=== PATIENT | female | born 1970 | race Caucasian/White ===

== ENCOUNTER 2016-05-12 18:55 | Inpatient (IN) | payer OTHER, MEDICAID ==
[2016-05-12] MEDS ORDERED: 0.9 % SODIUM CHLORIDE 1,000 ML IV SCH ×2 (19:30→20:00)
[2016-05-12 19:55] LABS: eGFR (African) 42; eGFR (Non-African) 35
--- NOTE | 2016-05-12 20:07 | ED Physician Documentation ---
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) Duration: sudden onset Last known Well Date: 05/12/16 Last Known Well Time: 18:30 Last known Well Code/Unknown Code: Unknown Character of Altered Mental Status: decreased responsiveness Context: infection Cognition is Usually: alert, oriented x3 Gait is Usually: walks w/o assistance Associated Symptoms: recent illness (urinary tract infection) Further Comments: no - ROS EYES/ENT: none CVS/RESP: none GI/: problems urinating (uti) MS/SKIN/LYMPH: none NEURO/PSYCH: none - PAST HX Past History: other (MR, GERD, anemia, hypothyroidism, dysphagia, sleep apnea, anxiety, hiatal hernia, catarracts, mood disorder) Other History: other (vitamin D deficiency) Surgeries/Procedures: other (heart surgery) Immunizations: referred to PCP Allergies/Adverse Reactions: Allergies Allergy/AdvReac Type Severity Reaction Status Date / Time ampicillin [Ampicillin] Allergy Unknown Verified 11/08/15 10:38 ampicillin trihydrate Allergy Unknown Verified 11/08/15 10:38 [From Principen] tetrahydrozoline HCl Allergy Unknown Verified 11/08/15 10:37 [From Visine] Penicillins AdvReac Rash Verified 11/08/15 10:37 Home Medications: Ambulatory Orders Medication Instructions Recorded Alprazolam [Xanax] 1 mg PO Q4 PRN u2 02/03/13 Paliperidone Palmitate [Invega 156 mg IM monthly 02/03/13 Sustenna] Alprazolam [Xanax] 1 mg PO QID 03/19/13 Cholecalciferol [Vitamin D-3] 5,000 unit PO DAILY 03/19/13 Docusate Sodium [Colace] 25 ml PO BID 03/19/13 Esomeprazole Magnesium [Nexium] 40 mg PO 717 03/19/13 Fluticasone Propionate [Flonase] 2 sprays SAM DAILY 03/19/13 Ipratropium/Albuterol Sulfate 3 ml INH Q4 PRN 03/19/13 [Duoneb 0.5 mg-3 mg/3 ml Soln] Levothyroxine Sodium [Synthroid] 100 mcg PO DAILY 03/19/13 Cetirizine HCl [Zyrtec] 10 mg PO D 02/15/14 Sennosides/Docusate Sodium [Senna 1 each PO DAILY 02/15/14 Plus Tablet] - SOCIAL HX Smoking History: non-smoker Alcohol Use: none Drug Use: none - FAMILY HX Family History: no significant history - VITAL SIGNS Vital Signs: Vital Signs Temp Pulse Resp BP Pulse Ox 97.4 F L 73 17 80/48 97 05/12/16 18:58 05/12/16 18:58 05/12/16 18:58 05/12/16 18:58 05/12/16 18:58 - REVIEWED ASSESSMENTS Nursing Assessment Reviewed: Yes Vitals Reviewed: Yes Progress - Results/Orders Results/Orders: cbc, cmp, ua, blood cultures, ekg, cxr ordered - Progress Progress: pt. given 2 liters NS in er Critical Care Note - Critical Care Note Total Time (mins): 0 ED Results Lab/Radiology - Lab Results Lab Results: Lab Results 05/12/16 05/12/16 19:27 19:27 WBC 19.70 K/ul H K/ul (4.00-12.00) RBC 3.81 M/ul L M/ul (3.90-5.20) Hgb 12.0 g/dL g/dL (12.0-16.0) Hct 36.5 % % (34.5-46.5) MCV 95.7 fl fl (80.0-100.0) MCH 31.5 pg pg (28.0-34.0) MCHC 33.0 g/dL g/dL (30.0-36.0) RDW 17.6 % H % (11.3-14.3) Plt Count 247 K/mm3 K/mm3 (130-400) Sodium 124 mmol/L L mmol/L (136-145) Potassium 4.1 mmol/L mmol/L (3.5-5.0) Chloride 91 mmol/L L mmol/L (98-110) Carbon Dioxide 32 mmol/L mmol/L (20-32) BUN 27 mg/dL H mg/dL (10-26) Creatinine 1.7 mg/dL H mg/dL (0.4-1.5) Est GFR ( Amer) 42 L (60 - ) Est GFR (Non-Af Amer) 35 L (60 - ) Glucose 94 mg/dL mg/dL (70-99) Calcium 9.6 mg/dL mg/dL (8.5-10.5) Total Bilirubin 0.7 mg/dL mg/dL (0.2-1.2) AST 32 U/L U/L (0-41) ALT 17 U/L U/L (0-45) Alkaline Phosphatase 125 U/L H U/L (46-116) Total Protein 7.7 g/dL g/dL (6.0-8.5) Albumin 3.6 g/dL g/dL (3.0-5.5) - Radiology Radiology Impressions: cxr cardiomegaly - Orders Orders: ED Orders Category Date Time Status Place Saline Lock/IV Now Care 05/12/16 19:29 Active CHEST 1 VIEW [RAD] Routine Exams 05/12/16 Taken BLOOD CULTURE Routine Lab 05/12/16 19:27 Received CBC/PLATELET/DIFF Routine Lab 05/12/16 19:27 Completed CMP Routine Lab 05/12/16 19:27 Completed URINALYSIS Routine Lab 05/12/16 19:27 Ordered 0.9 % Sodium Chloride [Normal Saline] 1,000 ml Med 05/12/16 19:30 Ordered IV .Q1H 0.9 % Sodium Chloride [Normal Saline] 1,000 ml Med 05/12/16 20:00 Ordered IV .Q1H EKG WITH COMPARISON Routine Ther 05/12/16 Ordered Transfer Routine Transfer 05/12/16 Ordered Altered Mental Status Physical - Physical Exam General Appearance: lethargic Neuro/Psych: other (no evidence of cva, moving extremities) no evidence of acute CVA, slow to respond nml as tested Peripheral Exam: reflexes nml HEENT: ENOC, EOM's intact, no apparent trauma, ENT inspection nml, oropharynx nml Neck: normal inspection, thyroid normal, supple Respiratory: no resp distress, chest non-tender, breath sounds normal CVS: reg rate & rhythm, heart sounds normal, equal pulses, no murmur, no gallop , PMI nml, no JVD Abdomen: non-tender, no organomegaly, nml bowel sounds, no distention Skin: warm/dry, normal color Extremities: non-tender, normal range of motion, no evidence of injury, no edema Discharge Clincal Impression: Sepsis secondary to UTI Home Medications: Ambulatory Orders Alprazolam [Xanax] 1 mg PO Q4 PRN u2 02/03/13 Paliperidone Palmitate [Invega Sustenna] 156 mg IM monthly 02/03/13 Alprazolam [Xanax] 1 mg PO QID 03/19/13 Cholecalciferol [Vitamin D-3] 5,000 unit PO DAILY 03/19/13 Docusate Sodium [Colace] 25 ml PO BID 03/19/13 Esomeprazole Magnesium [Nexium] 40 mg PO 717 03/19/13 Fluticasone Propionate [Flonase] 2 sprays SAM DAILY 03/19/13 Ipratropium/Albuterol Sulfate [Duoneb 0.5 mg-3 mg/3 ml Soln] 3 ml INH Q4 PRN 07/27 Levothyroxine Sodium [Synthroid] 100 mcg PO DAILY 03/19/13 Cetirizine HCl [Zyrtec] 10 mg PO D 02/15/14 Sennosides/Docusate Sodium [Senna Plus Tablet] 1 each PO DAILY 02/15/14 Comments: Case discussed with Dr. Clark who accepts admission. Condition: Stable Disposition: ADMITTED INPATIENT Decision to Admit: [id number] Decision Time: 22:00
[2016-05-12 20:09] LABS: MEAN CORPUSCULAR HEMOGLOBIN 31.5 pg (28.0-34.0)
[2016-05-12] MEDS: 0.9 % SODIUM CHLORIDE 1,000 ML IV SCH (21:05)
--- NOTE | 2016-05-12 23:14 | Diagnostic Imaging Report ---
[facility] [address] [facility] [address] [place], [place]. [address] ~ ~ ~ ~ Report Submission Date: May 12, 2016 8:01:25 PM VITAMIN MANAGER Patient ~ Study Name: MANJULA DE LOS SANTOS ~ Date: May 12, 2016 7:49:09 PM VITAMIN MANAGER ~ Modality Type: CR Gender: F ~ Description: CHEST : 72 ~ Institution: [facility] Physician: MANUEL CHONG ~ ~ ~ ~ Portable view chest Clinical history: Difficulty breathing Findings: There is pulmonary venous congestion and the heart size is mildly enlarged. No pleural effusion, pneumothorax or alveolar consolidation. Impression: Mild cardiomegaly with pulmonary venous congestion. ~ Electronically signed on May 12, 2016 8:01:25 PM VITAMIN MANAGER by: Curt MERCADO
[2016-05-13 03:06] VITALS: BMI 38.9
[2016-05-13] MEDS ORDERED: ACETAMINOPHEN 325 MG TABLET PO PRN (05:18)
[2016-05-13] MEDS ORDERED: ACETAMINOPHEN 325 MG TABLET ONE (05:33)
[2016-05-13 05:59] LABS: OCCULT BLOOD,URINE 2+ (NEGATIVE); UROBILINOGEN URINE 0.2 Eu (0.2-1.0)
[2016-05-13 06:21] LABS: ANISOCYTOSIS 1+ (NEGATIVE); MONOCYTES % 4 % (0-11); SEGMENTED NEUTROPHILS % 79 % (39-79)
[2016-05-13] MEDS ORDERED: IPRATROPIUM/ALBUTEROL SULFATE 3 ML AMPUL.NEB NEB PRN (07:32)
--- NOTE | 2016-05-13 07:41 | History and Physical Report ---
History of Present Illnes - History of Present Illness Reason for Visit: Urinary tract infection/sepsis History of Present Illness: Victorina is admitted today for urinary tract infection/sepsis. She has been less responsive over the past two days at the [facility] ( [facility]) and was seen by Dr. Child yesterday, and given 1 g of IV Rocephin, however despite this, she has not improved. She was brought to the ER last night for evaluation and a diagnosis of urinary tract infection with sepsis was made. Levofloxacin was ordered last evening, however for reasons that are unclear to me, no antibiotics have been administered to her in the hospital until this was noted this morning. Nursing is currently hanging 500 mg of IV levofloxacin at this time. Her white count is markedly elevated. She is receiving IV fluid resuscitation. CXR does not show any infiltrates but does show some cardiomegaly. - Past Medical History Cardiac: Other (History of VSD, repaired as an ). denies: AFIB SHINGLER: Other (Down's Syndrome, Mental retardation) Gastrointestinal: Other (Esophagitis, chronic aspiration) Heme/Onc: Anemia NOS Psych: Anxiety Endocrine: Hypothyroidism - Past Surgical History Past Surgical History: Other (Congenital heart repair at , dental surgery) - Past Social History Smoke: No Alcohol: None Drugs: None Lives: Other (prison) Domestic Violence: Negative - Health Maintenance Health Maintenance: Cholesterol Influenza Vaccine: Current for this Influenza Season Pneumonia Vaccine: Yes Resuscitation Status: Resusciation Status Resuscitation Status Full Code Review of Systems - Review of Systems Constitutional: Fever, Sweats, Weakness Eyes: negative: pain ENT: negative: Ear Pain Respiratory: negative: Cough Cardiovascular: negative: Chest Pain Gastrointestinal: negative: Nausea Genitourinary: negative: Dysuria Musculoskeletal: negative: Neck Pain Skin: negative: Rash Neurological: Weakness, Other (decreased LOC) - Medications/Allergies Allergies/Adverse Reactions: Allergies Allergy/AdvReac Type Severity Reaction Status Date / Time ampicillin [Ampicillin] Allergy Unknown Verified 11/08/15 10:38 ampicillin trihydrate Allergy Unknown Verified 11/08/15 10:38 [From Principen] tetrahydrozoline HCl Allergy Unknown Verified 11/08/15 10:37 [From Visine] Penicillins AdvReac Rash Verified 11/08/15 10:37 Current Inpatient Medications: Current Inpatient Medications Acetaminophen (Tylenol) 650 mg PO Q4H PRN PRN Reason: Fever >101 Albuterol/Ipratropium (Duoneb) 3 ml NEB Q4 PRN PRN Reason: Wheezing Alprazolam (Xanax) 0.5 mg PO QID [facility] Cholecalciferol (Vitamin D-3) 5,000 unit PO DAILY [facility] Docusate Sodium (Colace) 100 mg PO BID [facility] Fluticasone Propionate (Flonase Nasal [place]) 1 spray NS DAILY [facility] Sodium Chloride (Normal Saline) 1,000 mls @ 83 mls/hr IV Q12H [facility] Last Admin: 05/12/16 21:05 Dose: 83 mls/hr Sodium Chloride (Normal Saline) 1,000 mls @ 83 mls/hr IV Q10H [facility] Levofloxacin/Dextrose 500 mg/ (PREMIX BAG) 100 mls @ 100 mls/hr IV DAILY [facility] Levothyroxine Sodium (Synthroid) 100 mcg PO 0700 [facility] Loratadine/Pseudoephedrine Sulfate (Claritin-D 12 Hour Tablet) 1 each PO Q12 [facility] Pantoprazole Sodium (Protonix) 40 mg PO 0700 [facility] Senna/Docusate Sodium (Senna Plus Tablet) 1 each PO DAILY [facility] Simethicone (Gas-X) 80 mg PO QID [facility] Exam - Exam Vital Signs: Vital Signs (72 hours) 05/12/16 05/13/16 05/13/16 23:45 02:44 05:32 Temperature 98.3 F 98.2 F 102.2 F H Pulse Rate [ 97 H 97 H 87 Pulse ox] Respiratory 20 20 20 Rate Blood Pressure 96/54 97/53 134/90 [Left Arm] Blood Pressure 96/54 [Right Arm] O2 Sat by Pulse 96 95 92 Oximetry 05/13/16 07:15 Temperature Pulse Rate [ 89 Pulse ox] Respiratory 20 Rate Blood Pressure [Left Arm] Blood Pressure 94/50 [Right Arm] O2 Sat by Pulse 97 Oximetry General: Other (Obese non responsive mentally handicapped female) HEENT: Atraumatic, PERRLA, EOMI, Edentulous, Other (mucous membranes are dry) Neck: No: Stridor Lungs: Normal air movement. No: Wheezes, Rales Cardiovascular: Regular rate, Murmur (III/) Murmur: Systolic Murmur Murmur Location: [facility] Murmur Grade: III Abdomen: Normal bowel sounds, Soft, Other (Feeding tube in place) Genitourinary: No: Right Inguinal Hernia Male Genitourinary: No: Scrotal Edema Female Genitourinary: No: Prolapse Integumentary: Warm, Dry Extremities: No edema, Other (decreased pulses) Neurological: Other (Not responsive) Psych/Mental Status: Other (Non responsive) Assessment/Plan - Assessment/Plan (1) Sepsis secondary to UTI Status: Acute Current Visit: Yes Assessment: Urine and blood cultures are obtained Started levofloxacin IV IV fluids are running (2) Down's syndrome Status: Acute Current Visit: Yes (3) Hypotension Status: Acute Current Visit: Yes Assessment: Improved with fluid resuscitation (4) Renal insufficiency Status: Acute Current Visit: Yes Assessment: I expect that this will improve with fluids (5) Hyponatremia Status: Acute Current Visit: Yes Assessment: Mild (6) Chronic pulmonary aspiration Status: Acute Current Visit: Yes Assessment: Continue feedings with Jevity and water flushes. Currently on 1 can three times daily with 60cc water flushes every two hours. VTE Assessment - RISK FACTOR SCORE VTE RISK FACTOR SCORES: AGE 40-60 YEARS - RISK VTE LOW RISK: SCORE OF 1 OR LESS (RISK PROXIMAL DVT 0.4%) NO PROPHYLAXIS NEEDED (No DVT prophylaxis indicated based on scoring)
[2016-05-13] MEDS ORDERED: LEVOFLOXACIN 500MG/D5W 100ML 100 ML IV ONE ×2 (07:44→08:17)
[2016-05-13] MEDS: LEVOFLOXACIN 500MG/D5W 100ML 500 MG in PREMIX BAG 1 BAG IV SCH (07:45)
[2016-05-13] MEDS ORDERED: DOCUSATE SODIUM 100 MG CAPSULE ONE (08:17)
[2016-05-13] MEDS ORDERED: LEVOTHYROXINE SODIUM 100 MCG TABLET PO ONE (08:19)
[2016-05-13] MEDS ORDERED: DOCUSATE SODIUM 100 MG CAPSULE PO SCH (09:00)
[2016-05-13] MEDS: LORATADINE/PSEUDOEPHEDRINE 1 EACH TAB.ER.12H PO SCH ×3 (10:21→21:55)
[2016-05-13] MEDS: SIMETHICONE 80 MG TAB.CHEW PO SCH ×4 (10:25→21:54)
[2016-05-13] MEDS: 0.9 % SODIUM CHLORIDE 1,000 ML IV SCH ×4 (10:27→23:40)
[2016-05-13] MEDS: CHOLECALCIFEROL 1,000 UNIT TABLET PO SCH (10:28)
[2016-05-13] MEDS: PANTOPRAZOLE SODIUM 40 MG TABLET PO SCH (10:28)
[2016-05-13] MEDS: LEVOTHYROXINE SODIUM 100 MCG TABLET PO SCH (10:28)
[2016-05-13] MEDS: ALPRAZOLAM 0.5 MG TABLET PO SCH ×4 (10:29→21:54)
[2016-05-13] MEDS: SENNOSIDES/DOCUSATE SODIUM 1 EACH TABLET PO SCH (10:30)
[2016-05-13] MEDS: FLUTICASONE PROPIONATE 120 SPRAY/16 GR BOTTLE NS SCH (10:31)
[2016-05-13] MEDS: GUAIFENESIN PEG SCH (18:41)
[2016-05-13] MEDS: OXYBUTYNIN CHLORIDE 5 MG TABLET PO SCH (21:54)
[2016-05-13] MEDS: MIRTAZAPINE 15 MG TABLET PO SCH (21:54)
[2016-05-13] MEDS: BENZTROPINE MESYLATE 0.5 MG TAB PO SCH (21:57)
[2016-05-13] MEDS ORDERED: TYLENOL 160 MG/5 ML PEG PRN (23:16)
[2016-05-14] MEDS ORDERED: LEVOTHYROXINE SODIUM 100 MCG TABLET PO ONE (05:09)
[2016-05-14] MEDS: PANTOPRAZOLE SODIUM 40 MG TABLET PO SCH (06:27)
[2016-05-14] MEDS: LEVOTHYROXINE SODIUM 100 MCG TABLET PO SCH (06:28)
[2016-05-14] MEDS ORDERED: PATIENT OWN MED 1 EACH EACH PEG SCH ×2 (09:00)
[2016-05-14] MEDS: LEVOFLOXACIN 500MG/D5W 100ML 500 MG in PREMIX BAG 1 BAG IV SCH (10:15)
[2016-05-14] MEDS: OXYBUTYNIN CHLORIDE 5 MG TABLET PO SCH ×2 (10:15→22:09)
[2016-05-14] MEDS: GUAIFENESIN PEG SCH ×3 (10:15→18:11)
[2016-05-14] MEDS: SIMETHICONE 80 MG TAB.CHEW PO SCH ×4 (10:15→22:09)
[2016-05-14] MEDS: DOCUSATE PEG SCH (10:15)
[2016-05-14] MEDS: ALPRAZOLAM 0.5 MG TABLET PO SCH ×4 (10:15→22:10)
[2016-05-14] MEDS: BENZTROPINE MESYLATE 0.5 MG TAB PO SCH ×2 (10:15→22:09)
[2016-05-14] MEDS: PROBIOTIC PEG SCH (10:15)
[2016-05-14] MEDS: LORATADINE/PSEUDOEPHEDRINE 1 EACH TAB.ER.12H PO SCH ×2 (10:15→22:10)
[2016-05-14] MEDS: NEUDEXTA PEG SCH (10:15)
[2016-05-14] MEDS: CHOLECALCIFEROL 1,000 UNIT TABLET PO SCH (10:20)
[2016-05-14] MEDS: SENNOSIDES/DOCUSATE SODIUM 1 EACH TABLET PO SCH (10:20)
[2016-05-14] MEDS ORDERED: LEVOFLOXACIN 500MG/D5W 100ML 100 ML IV ONE (10:24)
[2016-05-14] MEDS: FLUTICASONE PROPIONATE 120 SPRAY/16 GR BOTTLE NS SCH (11:39)
[2016-05-14] MEDS: 0.9 % SODIUM CHLORIDE 1,000 ML IV SCH ×4 (11:41→15:45)
--- NOTE | 2016-05-14 11:45 | Inpatient Progress Note ---
Subjective - Required Recertification Statement I anticipate X number of days because-include discharge plan: 2 - Review of Systems Events since last encounter: Jesenia is still improving, but she had a fever last night. No apparent adverse side effects of her antibiotics and her feeding tube is working well. General: Denies: Chills HEENT: Denies: Head Aches Pulmonary: Denies: Dyspnea Cardiovascular: Denies: Chest Pain Gastrointestinal: Denies: Nausea, Vomiting Genitourinary: Denies: Dysuria Musculoskeletal: Denies: Neck Pain Neurological: Denies: Weakness Objective - Exam Vitals and I&O: Vital Signs Temp 98.0 F 05/14/16 06:00 Pulse 131 H 05/14/16 06:00 Resp 24 05/14/16 06:00 BP 106/65 05/14/16 06:00 Pulse Ox 94 05/14/16 06:00 Intake & Output 05/13/16 05/13/16 05/14/16 11:59 23:59 11:59 Intake Total 1999 996 Output Total 1250 225 500 Balance -1250 1775 496 Weight 62.142 kg Intake: IV 996 Right Antecubital 996 Other 1999 Output: Urine 1250 225 500 Uretheral ([place]) 650 Other: Voiding Method Indwelling Catheter General: Cooperative HEENT: Atraumatic, PERRLA, Edentulous Neck: Supple, No JVD Lungs: Clear to auscultation (scar on right posterior chest from thoracotomy) Cardiovascular: Regular rate Abdomen: Normal bowel sounds, Soft, Other (feeding tube appears to be working well) Extremities: No clubbing, No cyanosis, No edema Skin: Normal Neurological: Generalized Weakness Psych/Mental Status: Other (At baseline) - Results Results: Laboratory Results WBC 19.70 K/ul (4.00-12.00) H 05/12/16 19: RBC 3.81 M/ul (3.90-5.20) L 05/12/16 19:27 Hgb 12.0 g/dL (12.0-16.0) 05/12/16 19: Hct 36.5 % (34.5-46.5) 05/12/16 19: MCV 95.7 fl (80.0-100.0) 05/12/16 19: MCH 31.5 pg (28.0-34.0) 05/12/16 19:27 MCHC 33.0 g/dL (30.0-36.0) 05/12/16 19:27 RDW 17.6 % (11.3-14.3) H 05/12/16 19:27 Plt Count 247 K/mm3 (130-400) 05/12/16 19:27 Seg Neutrophils % 79 % (39-79) 05/12/16 19: Band Neutrophils % 12 % (0-12) 05/12/16 19: Lymphocytes % 5 % (16-50) L 05/12/16 19: Monocytes % 4 % (0-11) 05/12/16 19:27 Plt Morphology Comment Normal (NORMAL) 05/12/16 19:27 Anisocytosis 1+ (NEGATIVE) H 05/12/16 19:27 RBC Morph Comment Abnormal (NORMAL) H 05/12/16 19:27 Sodium 124 mmol/L (136-145) L 05/12/16 19:27 Potassium 4.1 mmol/L (3.5-5.0) 05/12/16 19: Chloride 91 mmol/L (98-110) L 05/12/16 19:27 Carbon Dioxide 32 mmol/L (20-32) 05/12/16 19:27 BUN 27 mg/dL (10-26) H 05/12/16 19:27 Creatinine 1.7 mg/dL (0.4-1.5) H 05/12/16 19:27 Est GFR ( Amer) 42 (60-) L 05/12/16 19:27 Est GFR (Non-Af Amer) 35 (60-) L 05/12/16 19:27 Glucose 94 mg/dL (70-99) 05/12/16 19: Calcium 9.6 mg/dL (8.5-10.5) 05/12/16 19: Total Bilirubin 0.7 mg/dL (0.2-1.2) 05/12/16 19:27 AST 32 U/L (0-41) 05/12/16 19:27 ALT 17 U/L (0-45) 05/12/16 19:27 Alkaline Phosphatase 125 U/L (46-116) H 05/12/16 19:27 Total Protein 7.7 g/dL (6.0-8.5) 05/12/16 19:27 Albumin 3.6 g/dL (3.0-5.5) 05/12/16 19:27 Urine pH 6.0 (5.0 - 8.0) 05/12/16 19:33 Ur Specific [place] 1.010 (1.010-1.030) 05/12/16 19:33 Urine Protein Negative mg/dL (NEGATIVE) 05/12/16 19:33 Urine Ketones Negative mg/dL (NEGATIVE) 05/12/16 19:33 Urine Occult Blood 2+ (NEGATIVE) H 05/12/16 19:33 Urine Nitrite Positive (NEGATIVE) H 05/12/16 19:33 Urine Bilirubin Negative (NEGATIVE) 05/12/16 19:33 Urine Urobilinogen 0.2 Eu (0.2-1.0) 05/12/16 19:33 Ur Leukocyte Esterase 3+ (NEGATIVE) H 05/12/16 19:33 Urine Glucose Negative mg/dL (NEGATIVE) 05/12/16 19:33 Assessment/Plan - Assessment/Plan (1) Sepsis secondary to UTI Status: Acute Current Visit: Yes Assessment: Improved Initial culture shows >100,000 CFU of gram negative rods (suspect E. Coli) Plan: Continue levofloxacin IV Await cultures (2) Down's syndrome Status: Acute Current Visit: Yes (3) Hypotension Status: Acute Current Visit: Yes Qualifiers: Hypotension type: idiopathic hypotension Qualified Code(s): I95.0 - Idiopathic hypotension Assessment: Improved (4) Renal insufficiency Status: Acute Current Visit: Yes Assessment: Due to azotemia/dehydration (5) Hyponatremia Status: Acute Current Visit: Yes (6) Chronic pulmonary aspiration Status: Acute Current Visit: Yes Assessment: Continue feeding tube
[2016-05-14] MEDS: MIRTAZAPINE 15 MG TABLET PO SCH (22:09)
[2016-05-15] MEDS: 0.9 % SODIUM CHLORIDE 1,000 ML IV SCH ×2 (00:49→18:17)
[2016-05-15] MEDS ORDERED: LEVOTHYROXINE SODIUM 100 MCG TABLET PO ONE (04:43)
[2016-05-15] MEDS: PANTOPRAZOLE SODIUM 40 MG TABLET PO SCH (06:27)
[2016-05-15] MEDS: LEVOTHYROXINE SODIUM 100 MCG TABLET PO SCH (06:27)
[2016-05-15 07:30] LABS: MEAN CORPUSCULAR HEMOGLOBIN 31.7 pg (28.0-34.0)
[2016-05-15 07:40] LABS: eGFR (African) > 60; eGFR (Non-African) > 60
--- NOTE | 2016-05-15 08:59 | Inpatient Progress Note ---
Subjective - Required Recertification Statement I anticipate X number of days because-include discharge plan: 1 - Review of Systems Events since last encounter: Jesenia has continued to improve. She is now afebrile. Her white count has normalized and her labs look better with less azotemia and improved and her sodium is now 136, up from 124. She is having some coughing and is usually on nebulizer treatment at home so I will restart that today. General: Denies: Chills HEENT: Denies: Head Aches Pulmonary: Dyspnea, Cough Cardiovascular: Denies: Chest Pain Gastrointestinal: Diarrhea. Denies: Nausea Genitourinary: Denies: Dysuria Musculoskeletal: Denies: Neck Pain Neurological: Weakness. Denies: Confusion Objective - Exam Vitals and I&O: Vital Signs Temp 98.1 F 05/15/16 06:00 Pulse 104 H 05/15/16 06:00 Resp 22 05/15/16 06:00 BP 96/57 05/15/16 06:00 Pulse Ox 92 05/15/16 06:00 Intake & Output 05/14/16 05/14/16 05/15/16 11:59 23:59 11:59 Intake Total 2988 1796 480 Output Total 1150 2000 1800 Balance 1838 -204 -1320 Weight 62.142 kg 57.153 kg Intake: IV 2988 1316 480 Right Antecubital 2988 1316 480 Tube Feeding 480 Output: Urine 1150 1999 1800 Uretheral ([place]) 650 Other: Voiding Method Indwelling Catheter Indwelling Catheter General: Obese HEENT: Atraumatic, PERRLA, Edentulous Neck: Supple, No JVD Lungs: Clear to auscultation, Wheezes (few) Cardiovascular: Regular rate, Normal S1, Normal S2 Abdomen: Normal bowel sounds, Soft, Other (feeding tube is leaking a little bit) Extremities: No clubbing, No cyanosis, No edema Skin: Normal Neurological: No: Normal gait, Normal speech Psych/Mental Status: Other (at baseline) - Results Results: Laboratory Results WBC 5.90 K/ul (4.00-12.00) 05/15/16 07:00 RBC 3.38 M/ul (3.90-5.20) L 05/15/16 07:00 Hgb 10.7 g/dL (12.0-16.0) L 05/15/16 07:00 Hct 33.2 % (34.5-46.5) L 05/15/16 07:00 MCV 98.3 fl (80.0-100.0) 05/15/16 07:00 MCH 31.7 pg (28.0-34.0) 05/15/16 07:00 MCHC 32.3 g/dL (30.0-36.0) 05/15/16 07:00 RDW 17.2 % (11.3-14.3) H 05/15/16 07:00 Plt Count 228 K/mm3 (130-400) 05/15/16 07:00 Seg Neutrophils % 79 % (39-79) 05/12/16 19:27 Band Neutrophils % 12 % (0-12) 05/12/16 19:27 Lymphocytes % 5 % (16-50) L 05/12/16 19:27 Monocytes % 4 % (0-11) 05/12/16 19:27 Plt Morphology Comment Normal (NORMAL) 05/12/16 19:27 Anisocytosis 1+ (NEGATIVE) H 05/12/16 19:27 RBC Morph Comment Abnormal (NORMAL) H 05/12/16 19:27 Sodium 136 mmol/L (136-145) 05/15/16 07:00 Potassium 4.2 mmol/L (3.5-5.0) 05/15/16 07:00 Chloride 109 mmol/L (98-110) 05/15/16 07:00 Carbon Dioxide 26 mmol/L (20-32) 05/15/16 07:00 BUN 13 mg/dL (10-26) 05/15/16 07:00 Creatinine 0.9 mg/dL (0.4-1.5) 05/15/16 07:00 Estimated Creat Clear 84 05/15/16 07:00 Est GFR ( Amer) > 60 (60-) 05/15/16 07:00 Est GFR (Non-Af Amer) > 60 (60-) 05/15/16 07:00 Glucose 129 mg/dL (70-99) H 05/15/16 07:00 Calcium 8.4 mg/dL (8.5-10.5) L 05/15/16 07:00 Total Bilirubin 0.7 mg/dL (0.2-1.2) 05/12/16 19:27 AST 32 U/L (0-41) 05/12/16 19:27 ALT 17 U/L (0-45) 05/12/16 19:27 Alkaline Phosphatase 125 U/L (46-116) H 05/12/16 19:27 Total Protein 7.7 g/dL (6.0-8.5) 05/12/16 19:27 Albumin 3.6 g/dL (3.0-5.5) 05/12/16 19:27 Urine pH 6.0 (5.0 - 8.0) 05/12/16 19:33 Ur Specific [place] 1.010 (1.010-1.030) 05/12/16 19:33 Urine Protein Negative mg/dL (NEGATIVE) 05/12/16 19:33 Urine Ketones Negative mg/dL (NEGATIVE) 05/12/16 19:33 Urine Occult Blood 2+ (NEGATIVE) H 05/12/16 19:33 Urine Nitrite Positive (NEGATIVE) H 05/12/16 19:33 Urine Bilirubin Negative (NEGATIVE) 05/12/16 19:33 Urine Urobilinogen 0.2 Eu (0.2-1.0) 05/12/16 19:33 Ur Leukocyte Esterase 3+ (NEGATIVE) H 05/12/16 19:33 Urine Glucose Negative mg/dL (NEGATIVE) 05/12/16 19:33 Assessment/Plan - Assessment/Plan (1) Sepsis secondary to UTI Status: Acute Current Visit: Yes Assessment: Improve Urine cultures show gram negative rods, ID/sensitivities are pending Blood cultures are no growth (2) Down's syndrome Status: Acute Current Visit: Yes Assessment: Chronic (3) Hypotension Status: Acute Current Visit: Yes Qualifiers: Hypotension type: idiopathic hypotension Qualified Code(s): I95.0 - Idiopathic hypotension Assessment: Improved (4) Renal insufficiency Status: Acute Current Visit: Yes (5) Hyponatremia Status: Acute Current Visit: Yes Assessment: Resolved (6) Chronic pulmonary aspiration Status: Acute Current Visit: Yes Assessment: Restart nebulizer treatments
[2016-05-15] MEDS: OXYBUTYNIN CHLORIDE 5 MG TABLET PO SCH ×2 (10:48→21:35)
[2016-05-15] MEDS: LORATADINE/PSEUDOEPHEDRINE 1 EACH TAB.ER.12H PO SCH ×2 (10:48→21:39)
[2016-05-15] MEDS: ALPRAZOLAM 0.5 MG TABLET PO SCH ×4 (10:48→21:39)
[2016-05-15] MEDS: BENZTROPINE MESYLATE 0.5 MG TAB PO SCH ×2 (10:48→21:35)
[2016-05-15] MEDS: FLUTICASONE PROPIONATE 120 SPRAY/16 GR BOTTLE NS SCH (10:49)
[2016-05-15] MEDS: SIMETHICONE 80 MG TAB.CHEW PO SCH ×4 (10:49→21:36)
[2016-05-15] MEDS: LEVOFLOXACIN 500MG/D5W 100ML 500 MG in PREMIX BAG 1 BAG IV SCH (10:50)
[2016-05-15] MEDS: CHOLECALCIFEROL 1,000 UNIT TABLET PO SCH (10:51)
[2016-05-15] MEDS: SENNOSIDES/DOCUSATE SODIUM 1 EACH TABLET PO SCH (10:51)
[2016-05-15] MEDS: NEUDEXTA PEG SCH (10:55)
[2016-05-15] MEDS: PROBIOTIC PEG SCH (10:55)
[2016-05-15] MEDS: GUAIFENESIN PEG SCH ×3 (10:56→18:46)
[2016-05-15] MEDS: DOCUSATE PEG SCH (10:57)
[2016-05-15] MEDS: IPRATROPIUM/ALBUTEROL SULFATE 3 ML AMPUL.NEB NEB SCH ×3 (13:11→17:10)
[2016-05-15] MEDS: MIRTAZAPINE 15 MG TABLET PO SCH (21:36)
[2016-05-16] MEDS: IPRATROPIUM/ALBUTEROL SULFATE 3 ML AMPUL.NEB NEB SCH ×2 (00:05→07:23)
[2016-05-16] MEDS: PANTOPRAZOLE SODIUM 40 MG TABLET PO SCH (06:34)
[2016-05-16] MEDS: 0.9 % SODIUM CHLORIDE 1,000 ML IV SCH (07:00)
[2016-05-16] MEDS ORDERED: LEVOTHYROXINE SODIUM 100 MCG TABLET PO SCH (07:00)
[2016-05-16] MEDS: OXYBUTYNIN CHLORIDE 5 MG TABLET PO SCH (08:27)
[2016-05-16] MEDS: ALPRAZOLAM 0.5 MG TABLET PO SCH (08:28)
[2016-05-16] MEDS: SIMETHICONE 80 MG TAB.CHEW PO SCH (08:28)
[2016-05-16] MEDS: BENZTROPINE MESYLATE 0.5 MG TAB PO SCH (08:28)
[2016-05-16] MEDS: LORATADINE/PSEUDOEPHEDRINE 1 EACH TAB.ER.12H PO SCH (08:28)
[2016-05-16] MEDS: SENNOSIDES/DOCUSATE SODIUM 1 EACH TABLET PO SCH (08:30)
[2016-05-16] MEDS: CHOLECALCIFEROL 1,000 UNIT TABLET PO SCH (08:30)
[2016-05-16] MEDS: LEVOFLOXACIN 500MG/D5W 100ML 500 MG in PREMIX BAG 1 BAG IV SCH (08:35)
[2016-05-16] MEDS: GUAIFENESIN PEG SCH (08:36)
[2016-05-16] MEDS: PROBIOTIC PEG SCH (08:37)
[2016-05-16] MEDS: DOCUSATE PEG SCH (08:39)
[2016-05-16] MEDS: NEUDEXTA PEG SCH (08:41)
[2016-05-16] MEDS: FLUTICASONE PROPIONATE 120 SPRAY/16 GR BOTTLE NS SCH (08:41)
[2016-05-16 10:05] VITALS: BP 95/54
--- NOTE | 2016-05-17 15:31 | Discharge Summary ---
DATE OF ADMISSION: May 13, 2016 DATE OF DISCHARGE: May 16, 2016 DIAGNOSES ON THIS HOSPITALIZATION: 1. Urosepsis. 2. Down Syndrome. 3. Hyponatremia. 4. Acute renal insufficiency. 5. Chronic aspiration. SUMMARIZATION OF ADMISSION HISTORY AND PHYSICAL: This is a 45-year-old female with Down's Syndrome who was admitted from a half-way with a urinary tract infection and sepsis. She actually had been seen in Dr. Child's office the day of admission and started on appropriate antibiotics ; however, she continued to decline over the course of the day and was brought to the emergency room for an evaluation where she was noted to be septic with a white count of 19,200. She was hypotensive. She was also noted to be hyponatremic and she had gross pyuria. Urine cultures did grow out Pseudomonas aeruginosa which is sensitive to levofloxacin which is what Dr. Child had started. She was continued on IV levofloxacin at 500 mg daily during her hospitalization and then discharged on 500 mg p.o. daily for another 5 days. Blood cultures were negative. CONDITION ON DISCHARGE: She was discharged back to her half-way in markedly improved condition. DISCHARGE INSTRUCTIONS: She will follow up with Dr. Child in 1 week. JESS
== END 2016-05-16 13:00 | disposition home or self-care (01) | DRG 872 ==
LOC: ED 18:55 → SOUTH 23:39
PROVIDERS: ADMIT Emergency Medicine; ATTEND Family Medicine
DX: A41.9 Sepsis, unspecified organism (principal); N39.0 Urinary tract infection, site not specified; E87.1 Hypo-osmolality and hyponatremia; Q90.9 Down syndrome, unspecified; I95.0 Idiopathic hypotension; N28.9 Disorder of kidney and ureter, unspecified; T17.920A Food in respiratory tract, part unspecified causing asphyxiation, initial encounter
CPT/HCPCS: 36415; 71010; 80048; 80053; 81002; 85025; 85027; 87040; 87088; 87186; 94640; 94760; 99284; A9270; J1956; J7030; 99222; 99232; 99238; S1016

== ENCOUNTER 2016-06-10 14:34 | Outpatient (CLI) | payer OTHER, MEDICAID ==
--- NOTE | 2016-06-10 17:39 | Diagnostic Imaging Report ---
MILO ERICKSON~ [facility] [address] [address] ~ ~ ~ ~ Report Submission Date: Jun 10, 2016 3:34:31 PM INFORMATION SECURITY Patient ~ Study Name: MANJULA DE LOS SANTOS ~ Date: Jun 10, 2016 3:04:40 PM INFORMATION SECURITY ~ Modality Type: CR Gender: F ~ Description: ABDOMEN : 72 ~ Institution: [facility] Physician: MILO ERICKSON ~ ~ ~ ~ Abdomen KUB Exam: June 10, 2016. Clinical history: Chronic enterostomy feeding tube, checking for j-tube placement. Findings: A feeding tube is present in the left abdomen with the catheter coiled in the region of the feeding tube. The visualized bowel gas pattern is unremarkable. There is gas and stool in the colon. Left lumbar scoliosis is present. Left pelvic phleboliths are present. Impression: Feeding tube coiled in the left abdomen. ~ Electronically signed on Jun 10, 2016 3:34:31 PM INFORMATION SECURITY by: Michael MERCADO
== END 2016-06-10 14:35 ==
LOC: LAB 14:34 → OUT 14:35
PROVIDERS: ATTEND Family Medicine
DX: Z43.4 Encounter for attention to other artificial openings of digestive tract (principal)
CPT/HCPCS: 74000

== ENCOUNTER 2016-06-21 14:00 | Emergency (ER) | payer OTHER ==
[2016-06-21 14:51] LABS: BASOPHILS % 0.5 (0.0-1.5); EOSINOPHILS % 1.5 % (0.0-6.8); LYMPHOCYTES # 1.4 # k/uL (0.6-4.0); MEAN CORPUSCULAR HEMOGLOBIN 29.8 pg (28.0-34.0); MONOCYTES # 0.5 # k/uL (0.0-0.9); MONOCYTES % 5.2 % (0.0-11.0); NEUTROPHILS # 6.9 # k/uL (1.4-7.7)
[2016-06-21 14:56] LABS: APPEARANCE,URINE Clear (CLEAR); COLOR,URINE Yellow (YELLOW); OCCULT BLOOD,URINE 1+ (NEGATIVE); UROBILINOGEN URINE 0.2 Eu (0.2-1.0)
[2016-06-21 15:06] LABS: AMORPHOUS SEDIMENT,UR FEW (NEGATIVE)
[2016-06-21 15:07] LABS: eGFR (African) > 60; eGFR (Non-African) > 60
--- NOTE | 2016-06-21 15:13 | ED Physician Documentation ---
General Adult - HISTORIAN Historian: paramedics, other (caregiver) - HPI Stated Complaint: possible seizure activity Chief Complaint: General Adult Further Comments: yes (45 year old female patient brought in via EMS after episode of "shaking and staring off". Staff reported patient was sleepy and non -responsive after episode. EMS called. Call from PCP - reports patient has had episodes of seizure like activity in the past few weeks, patient was taken off her dilantin 6 month ago, is currently having multiple psychiatric drugs weaned off including xanax, Remeron and Nuedexta. Patient has had transient hypotension this week.) - ROS CONST: recent illness EYES/ENT: none CVS/RESP: none GI/: none MS/SKIN/LYMPH: none NEURO/PSYCH: other (2 seizure like episodes) - PAST HX Past History: other (Down's Syndrome, GERD, Anemia of chronic disease, dysphagia , sleep apnea, hypothyroid, anxiety, Mood disorder, J-tube, suprapubic catheter , noctural hypoxia) Allergies/Adverse Reactions: Allergies Allergy/AdvReac Type Severity Reaction Status Date / Time ampicillin [Ampicillin] Allergy Unknown Verified 06/21/16 14:50 ampicillin trihydrate Allergy Unknown Verified 06/21/16 14:50 [From Principen] tetrahydrozoline HCl Allergy Unknown Verified 06/21/16 14:50 [From Visine] Penicillins AdvReac Rash Verified 06/21/16 14:50 Home Medications: Ambulatory Orders Medication Instructions Recorded Alprazolam [Xanax] 1 mg PO Q4 PRN u2 02/03/13 Paliperidone Palmitate [Invega 156 mg IM monthly 02/03/13 Sustenna] Alprazolam [Xanax] 1 mg PO QID 03/19/13 Cholecalciferol [Vitamin D-3] 5,000 unit PO DAILY 03/19/13 Docusate Sodium [Colace] 25 ml PO BID 03/19/13 Esomeprazole Magnesium [Nexium] 40 mg PO 717 03/19/13 Fluticasone Propionate [Flonase] 2 sprays SAM DAILY 03/19/13 Ipratropium/Albuterol Sulfate 3 ml INH Q4 PRN 03/19/13 [Duoneb 0.5 mg-3 mg/3 ml Soln] Levothyroxine Sodium [Synthroid] 100 mcg PO DAILY 03/19/13 Cetirizine HCl [Zyrtec] 10 mg PO D 02/15/14 Sennosides/Docusate Sodium [Senna 1 each PO DAILY 02/15/14 Plus Tablet] - SOCIAL HX Smoking History: non-smoker - FAMILY HX Family History: No - VITAL SIGNS Vital Signs: Vital Signs Temp Pulse Resp BP Pulse Ox 96.5 F L 80 16 96/63 100 06/21/16 14:00 06/21/16 14:00 06/21/16 14:00 06/21/16 14:00 06/21/16 14:00 - REVIEWED ASSESSMENTS Nursing Assessment Reviewed: Yes Vitals Reviewed: Yes Progress - Progress Progress: Suprapubic inoculated, will culture and not start antibiotic at present. Caregiver at bedside. Patient responding, smiling, cooperative. Na 129, reviewed previous Na results; patient usually runs 135-144. Glucose 41 , patient missed 1400 Jevity bolus. 1/2 amp D50 given in Er. Patient remains alert and responsive. Whitney - small animal caretaker reports using 60cc of water before and after all medications, before and after jevity boluses, and 60cc boluses every 2 hours while feedings are running. Plus 8 oz QID. This does not follow PCP orders. 1545 Spoke with Jadyn BRUNSON. Reviewed lab, will send HbgA1C, decrease water flushes and follow up in office on Sunday. Discussed plan of care with sister and caregiver, agree with restarting dilantin; verbalized understanding. Call to Dr Chi's office to move appointment up, he is out of town July 15-. ED Results Lab/Radiology - Lab Results Lab Results: Lab Results 06/21/16 06/21/16 14:50 14:45 WBC 9.20 K/ul K/ul (4.00-12.00) RBC 3.55 M/ul L M/ul (3.90-5.20) Hgb 10.6 g/dL L g/dL (12.0-16.0) Hct 33.2 % L % (34.5-46.5) MCV 93.5 fl fl (80.0-100.0) MCH 29.8 pg pg (28.0-34.0) MCHC 31.9 g/dL g/dL (30.0-36.0) RDW 18.0 % H % (11.3-14.3) Plt Count 289 K/mm3 K/mm3 (130-400) Neut % (Auto) 75.6 % % (39.0-79.0) Lymph % (Auto) 15.6 % L % (16.0-50.0) [place] % (Auto) 5.2 % % (0.0-11.0) Eos % (Auto) 1.5 % % (0.0-6.8) Baso % (Auto) 0.5 (0.0-1.5) Neut # 6.9 # k/uL # k/uL (1.4-7.7) Lymph # 1.4 # k/uL # k/uL (0.6-4.0) [place] # 0.5 # k/uL # k/uL (0.0-0.9) Eos # 0.1 # k/uL # k/uL (0.0-0.6) Baso # 0.0 # k/uL # k/uL (0.0-0.5) Reactive Lymphs % 1.6 % % (0.0-5.0) Reactive Lymphs # 0.1 # k/uL # k/uL (0.0-0.8) Urine Color Yellow (YELLOW) Urine Appearance Clear (CLEAR) Urine pH 7.0 (5.0 - 8.0) Ur Specific [place] 1.010 (1.010-1.030) Urine Protein Negative mg/dL mg/dL (NEGATIVE) Urine Ketones Negative mg/dL mg/dL (NEGATIVE) Urine Occult Blood 1+ H (NEGATIVE) Urine Nitrite Negative (NEGATIVE) Urine Bilirubin Negative (NEGATIVE) Urine Urobilinogen 0.2 Eu Eu (0.2-1.0) Ur Leukocyte Esterase 2+ H (NEGATIVE) Urine RBC 0-2 (0-2 HPF) Urine WBC 5-10 H (0-5 HPF) Ur Squamous Epith Cells Few (NEG-FEW) Amorphous Sediment Few H (NEGATIVE) Urine Bacteria Moderate H (NEGATIVE) Urine Glucose Negative mg/dL mg/dL (NEGATIVE) - Orders Orders: ED Orders Category Date Time Status Place Saline Lock/IV NOW Care 06/21/16 14:41 Active CBC/PLATELET/DIFF Stat Lab 06/21/16 14:45 Completed CMP Stat Lab 06/21/16 14:45 Received UA W/MICRO IF INDICATED Stat Lab 06/21/16 14:50 Completed URINE CULTURE Stat Lab 06/21/16 Uncollected URINE CULTURE Stat Lab 06/21/16 14:50 Received General Adult Physical Exam - PHYSICAL EXAM GENERAL APPEARANCE: mild distress (somnulent) EENT: ENOC, other (left injected - chronic) NECK: normal inspection RESPIRATORY: no resp distress, chest non-tender, breath sounds normal CVS: reg rate & rhythm, heart sounds normal, equal pulses, no murmur, no gallop , PMI nml, no JVD, no friction rub, 24 ABDOMEN: soft, no organomegaly, normal bowel sounds, no abdominal bruit, no distension, other (suprapubic catheter, J-tube: clamped) BACK: normal inspection, no CVA tenderness SKIN: warm/dry, pallor EXTREMITIES: non-tender, normal range of motion, no evidence of injury, no edema , J, 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 Downs syndrome) Discharge Clincal Impression: Seizure-like activity, Hypoglycemia, Hyponatremia Additional Instructions: Decrease ALL water flushes 30 cc Give 1/2 can of jevity on arrival home. Check accu check (blood sugar) if patient has altered mental status. Make follow up appointment with Jadyn BRUNSON or Dr Child for Sunday Prescription provided for Dilantin - restarting preview dose Attempted to move appointment up with Dr Chi. He is out of town July 15- Home Medications: Ambulatory Orders Alprazolam [Xanax] 1 mg PO Q4 PRN u2 02/03/13 Paliperidone Palmitate [Invega Sustenna] 156 mg IM monthly 02/03/13 Alprazolam [Xanax] 1 mg PO QID 03/19/13 Cholecalciferol [Vitamin D-3] 5,000 unit PO DAILY 03/19/13 Docusate Sodium [Colace] 25 ml PO BID 03/19/13 Esomeprazole Magnesium [Nexium] 40 mg PO 717 03/19/13 Fluticasone Propionate [Flonase] 2 sprays SAM DAILY 03/19/13 Ipratropium/Albuterol Sulfate [Duoneb 0.5 mg-3 mg/3 ml Soln] 3 ml INH Q4 PRN 07/27 Levothyroxine Sodium [Synthroid] 100 mcg PO DAILY 03/19/13 Cetirizine HCl [Zyrtec] 10 mg PO D 02/15/14 Sennosides/Docusate Sodium [Senna Plus Tablet] 1 each PO DAILY 02/15/14 Condition: Stable Disposition: 01 HOME, SELF-CARE Decision to Admit: NO Decision Time: 16:00
[2016-06-21] MEDS: DEXTROSE 50% 50 ML DISP.SYRIN IVP ONE (16:00)
[2016-06-21 16:34] VITALS: BP 115/62
== END 2016-06-21 16:20 | disposition home or self-care (01) ==
LOC: ED 14:00
DX: R56.9 Unspecified convulsions (principal); E16.2 Hypoglycemia, unspecified; E87.1 Hypo-osmolality and hyponatremia
CPT/HCPCS: 80053; 81002; 83036; 85025; 87086; 87186; S1016

== ENCOUNTER 2016-06-26 11:36 | Outpatient (CLI) | payer OTHER ==
[2016-06-26 12:06] LABS: BASOPHILS % 0.6 (0.0-1.5); EOSINOPHILS % 0.7 % (0.0-6.8); LYMPHOCYTES # 0.8 # k/uL (0.6-4.0); MEAN CORPUSCULAR HEMOGLOBIN 30.7 pg (28.0-34.0); MONOCYTES # 0.2 # k/uL (0.0-0.9); MONOCYTES % 2.6 % (0.0-11.0); NEUTROPHILS # 7.3 # k/uL (1.4-7.7)
[2016-06-26 12:31] LABS: eGFR (African) > 60; eGFR (Non-African) > 60
== END 2016-06-26 11:37 ==
LOC: LAB 11:36
PROVIDERS: ATTEND Nurse Practitioner Family
DX: G40.909 Epilepsy, unspecified, not intractable, without status epilepticus (principal); R73.9 Hyperglycemia, unspecified; E87.1 Hypo-osmolality and hyponatremia
CPT/HCPCS: 36415; 80053; 80185; 83036; 85025

== ENCOUNTER 2016-07-21 09:45 | Outpatient (CLI) | payer OTHER ==
[2016-07-21 10:07] LABS: BASOPHILS % 1.1 (0.0-1.5); MEAN CORPUSCULAR VOLUME 100.7 fl (80.0-100.0); MONOCYTES % 7.8 % (0.0-11.0); NEUTROPHILS # 3.5 # k/uL (1.4-7.7)
[2016-07-21 11:00] LABS: eGFR (African) > 60; eGFR (Non-African) > 60
--- NOTE | 2016-07-21 20:08 | Diagnostic Imaging Report ---
[facility] [address] [facility].[address] [address] Report Submission Date: Jul 21, 2016 2:53:04 PM CDT Patient Study Name: MANJULA DE LOS SANTOS Date: Jul 21, 2016 10:18:28 AM CDT Modality Type: CR Gender: F Description: CHEST : 72 Institution: [facility] Physician SHEMAR TAYLOR - OP Chest -two views CLINICAL HISTORY: Sepsis. FINDINGS: Examination of the chest in AP and lateral views with comparison to examination 05/12/2016 demonstrates mild cardiomegaly. There is acute kyphosis near the thoracolumbar junction. Lungs are free of coalescent infiltrate. There is partial fusion of the left 4th and 5th ribs. IMPRESSION: Kyphosis near the thoracolumbar junction. Mild cardiomegaly. No active disease. Electronically signed on Jul 21, 2016 2:53:04 PM CDT by: Anton MERCADO
== END 2016-07-21 09:46 ==
LOC: LAB 09:45
PROVIDERS: ATTEND Nurse Practitioner Family
DX: A41.89 Other specified sepsis (principal)
CPT/HCPCS: 36415; 71020; 80053; 82306; 84439; 84443; 85025; 87086; 87186

== ENCOUNTER 2016-07-26 09:08 | Outpatient (CLI) | payer OTHER | END 2016-07-26 09:10 | LOC: LAB 09:08 | PROVIDERS: ATTEND Nurse Practitioner Psychiatric/Mental Health | DX: Z51.81 Encounter for therapeutic drug level monitoring (principal); Z79.899 Other long term (current) drug therapy | CPT/HCPCS: 36415; 80185; 82465; 84443 ==

== ENCOUNTER 2016-07-27 12:22 | Outpatient (CLI) | payer OTHER | END 2016-07-27 12:23 | LOC: LAB 12:22 | PROVIDERS: ATTEND Nurse Practitioner Family | DX: R56.9 Unspecified convulsions (principal) | CPT/HCPCS: 36415; 80185 ==

== ENCOUNTER 2016-07-31 09:51 | Outpatient (CLI) | payer OTHER | END 2016-07-31 09:52 | LOC: LAB 09:51 | PROVIDERS: ATTEND Nurse Practitioner Family | DX: R56.9 Unspecified convulsions (principal) | CPT/HCPCS: 36415; 80185 ==

== ENCOUNTER 2016-08-03 09:20 | Outpatient (CLI) | payer OTHER | END 2016-08-03 09:21 | LOC: LAB 09:20 | PROVIDERS: ATTEND Nurse Practitioner Family | DX: Z51.81 Encounter for therapeutic drug level monitoring (principal); Z79.899 Other long term (current) drug therapy; G40.909 Epilepsy, unspecified, not intractable, without status epilepticus | CPT/HCPCS: 36415; 80185 ==

== ENCOUNTER 2016-08-25 10:49 | Outpatient (CLI) | payer OTHER, MEDICAID ==
[2016-08-25 11:37] LABS: BASOPHILS % 1.7 (0.0-1.5); MEAN CORPUSCULAR HEMOGLOBIN 30.7 pg (28.0-34.0); MEAN CORPUSCULAR VOLUME 95.8 fl (80.0-100.0); MONOCYTES % 6.7 % (0.0-11.0); NEUTROPHILS # 3.1 # k/uL (1.4-7.7)
[2016-08-25 12:12] LABS: eGFR (African) > 60; eGFR (Non-African) > 60
[2016-08-25 13:18] LABS: APPEARANCE,URINE Clear (CLEAR); COLOR,URINE Yellow (YELLOW); OCCULT BLOOD,URINE 1+ (NEGATIVE); PH URINE 8.5 (5.0 - 8.0); UROBILINOGEN URINE 0.2 Eu (0.2-1.0)
[2016-08-25 13:27] LABS: AMORPHOUS SEDIMENT,UR FEW (NEGATIVE)
[2016-08-25 18:50] LABS: VITAMIN D, 25-HYDROXY 36 ng/mL (30-100)
== END 2016-08-25 10:50 ==
LOC: LAB 10:49
PROVIDERS: ATTEND Nurse Practitioner Psychiatric/Mental Health
DX: Z51.81 Encounter for therapeutic drug level monitoring (principal); Z79.899 Other long term (current) drug therapy
CPT/HCPCS: 36415; 80053; 80156; 81002; 82306; 82465; 82746; 84439; 84443; 85025; 87086

== ENCOUNTER 2016-09-23 10:06 | Outpatient (CLI) | payer MEDICARE, OTHER ==
--- NOTE | 2016-09-23 10:49 | Diagnostic Imaging Report ---
MILO ERICKSON~ [facility] [address] [facility].[address] [address] ~ ~ ~ ~ Report Submission Date: Sep 23, 2016 10:44:17 AM CDT Patient ~ Study Name: MANJULA DE LOS SANTOS ~ Date: Sep 23, 2016 10:29:47 AM CDT ~ Modality Type: CR Gender: F ~ Description: ABDOMEN : 72 ~ Institution: [facility] Physician: MILO ERICKSON ~ ~ ~ ~ Abdomen - one-view Clinical history: ~Confirm G-tube placement. Findings: ~Examination of the abdomen in single AP view with comparison to examination of 06/10/2016 demonstrates a gastrostomy tube with tip overlying the region of the gastric body. ~Gas and stool are present in the colon. Impression: 1. ~Gastrostomy tube tip superimposes the gastric body. ~ Electronically signed on Sep 23, 2016 10:44:17 AM CDT by: Anton MERCADO
== END 2016-09-23 10:07 ==
LOC: RAD 10:06
PROVIDERS: ATTEND Nurse Practitioner Family
DX: Z93.4 Other artificial openings of gastrointestinal tract status (principal); K31.84 Gastroparesis; K22.70 Barrett's esophagus without dysplasia
CPT/HCPCS: 74000

== ENCOUNTER 2016-09-29 07:23 | Outpatient (CLI) | payer MEDICARE, OTHER | END 2016-09-29 07:25 | LOC: LAB 07:23 | PROVIDERS: ATTEND Family Medicine | DX: R56.9 Unspecified convulsions (principal); Z79.899 Other long term (current) drug therapy | CPT/HCPCS: 36415; 80156 ==

== ENCOUNTER 2016-10-05 18:28 | Outpatient (CLI) | payer OTHER ==
--- NOTE | 2016-10-05 19:20 | Diagnostic Imaging Report ---
[facility] [address] [facility] [place] [facility] [address], [place]. [address] Report Submission Date: Oct 05, 2016 7:07:12 PM CDT Patient Study Name: MANJULA DE LOS SANTOS Date: Oct 05, 2016 6:37:36 PM CDT Modality Type: CR Gender: F Description: ABDOMEN : 72 Institution: [facility] Physician: [facility] Examination: Abdomen series History: Tube placement Comparison exam: 23 September 2016 Findings: 2 views obtained of the abdomen. J tube identified: tip projecting over the stomach. No abnormal dilation of the large or small bowel. Air and stool throughout the large bowel. No suspicious calcification projecting over the renal fossa or the lower pelvic region. Osseous structures demonstrated leftward curvature of the lumbar spine. Impression: Tube placement: tip over the stomach region. No ileus or obstruction. No suspicious calcifications by plain film sensitivity. Electronically signed on Oct 05, 2016 7:07:12 PM CDT by: Marcel MERCADO
== END 2016-10-05 18:30 ==
LOC: RAD 18:28
PROVIDERS: ATTEND Nurse Practitioner Family
DX: Z93.4 Other artificial openings of gastrointestinal tract status (principal); K31.84 Gastroparesis; K22.70 Barrett's esophagus without dysplasia
CPT/HCPCS: 74000

== ENCOUNTER 2016-10-25 14:37 | Inpatient (IN) | payer OTHER ==
[2016-10-25] MEDS ORDERED: 0.9 % SODIUM CHLORIDE 1,000 ML IV SCH (15:00)
[2016-10-25] MEDS ORDERED: 0.9 % SODIUM CHLORIDE 500 ML IV ONE ×3 (15:08→16:00)
[2016-10-25 15:26] LABS: MEAN CORPUSCULAR HEMOGLOBIN 31.8 pg (28.0-34.0); MEAN CORPUSCULAR VOLUME 96.5 fl (80.0-100.0)
[2016-10-25 15:28] LABS: eGFR (African) > 60; eGFR (Non-African) 43
[2016-10-25 15:38] LABS: MONOCYTES % 2 % (0-11); SEGMENTED NEUTROPHILS % 84 % (39-79)
[2016-10-25 15:39] LABS: TOXIC GRANULATION PRESENT
[2016-10-25] MEDS ORDERED: 0.9 % SODIUM CHLORIDE 1,000 ML IV ONE (15:52)
[2016-10-25 15:56] LABS: APPEARANCE,URINE Cloudy (CLEAR); COLOR,URINE Yellow (YELLOW); OCCULT BLOOD,URINE 3+ (NEGATIVE); PH URINE 6.5 (5.0 - 8.0); UROBILINOGEN URINE 0.2 Eu (0.2-1.0)
[2016-10-25] MEDS ORDERED: SIMETHICONE 80 MG PO PRN (16:07)
[2016-10-25] MEDS ORDERED: IPRATROPIUM INH PRN (16:07)
[2016-10-25] MEDS ORDERED: ALBUTEROL SULFATE INH PRN (16:07)
[2016-10-25] MEDS ORDERED: ALPRAZOLAM 1 MG PO PRN (16:07)
[2016-10-25] MEDS ORDERED: [UNRECOGNIZED DRUG - OTHER] INH PRN (16:07)
[2016-10-25] MEDS ORDERED: PALIPERIDONE PALMITATE 156 MG IM SCH (16:15)
[2016-10-25] MEDS ORDERED: LEVOFLOXACIN 500MG/D5W 100ML 500 MG in PREMIX BAG 1 BAG IV SCH (16:15)
--- NOTE | 2016-10-25 16:16 | ED Physician Documentation ---
Altered Mental Status - HISTORIAN Historian: paramedics - [facility] Chief Complaint: Altered Mental Status Additional Information: brought from [place] with mental status changes. She was diagnosed with UTI, and proper antibiotic was just known after 2 days. now they are concerned she may be septic. Her BP is 85/46, but looking at her history, her BP remains in that range. HR is 91. She is unable to provide any history secondary to mental condition. Onset: hours Duration: gradual onset Last known Well Date: 10/25/16 Last Known Well Time: 16:15 Last known Well Code/Unknown Code: Unknown Character of Altered Mental Status: decreased responsiveness Context: senior living resident, chronic dementia Cognition is Usually: poor alertness Gait is Usually: unable to walk Associated Symptoms: recent illness Further Comments: no - ROS EYES/ENT: none CVS/RESP: none GI/: none MS/SKIN/LYMPH: none NEURO/PSYCH: none - PAST HX Past History: psychiatric disorder Other History: asthma Allergies/Adverse Reactions: Allergies Allergy/AdvReac Type Severity Reaction Status Date / Time ampicillin [Ampicillin] Allergy Unknown Verified 10/25/16 14:49 ampicillin trihydrate Allergy Unknown Verified 10/25/16 14:49 [From Principen] tetrahydrozoline HCl Allergy Unknown Verified 10/25/16 14:49 [From Visine] Penicillins AdvReac Rash Verified 10/25/16 14:49 Home Medications: Ambulatory Orders Medication Instructions Recorded Alprazolam [Xanax] 1 mg PO Q4 PRN u2 02/03/13 Paliperidone Palmitate [Invega 156 mg IM monthly 02/03/13 Sustenna] Alprazolam [Xanax] 1 mg PO QID 03/19/13 Cholecalciferol [Vitamin D-3] 5,000 unit PO DAILY 03/19/13 Docusate Sodium [Colace] 25 ml PO BID 03/19/13 Esomeprazole Magnesium [Nexium] 40 mg PO 717 03/19/13 Fluticasone Propionate [Flonase] 2 sprays SAM DAILY 03/19/13 Ipratropium/Albuterol Sulfate 3 ml INH Q4 PRN 03/19/13 [Duoneb 0.5 mg-3 mg/3 ml Soln] Levothyroxine Sodium [Synthroid] 100 mcg PO DAILY 03/19/13 Cetirizine HCl [Zyrtec] 10 mg PO D 02/15/14 Sennosides/Docusate Sodium [Senna 1 each PO DAILY 02/15/14 Plus Tablet] Phenytoin 4 ml PO QID #500 ml 06/21/16 - SOCIAL HX Smoking History: non-smoker Alcohol Use: none Drug Use: none - FAMILY HX Family History: none - VITAL SIGNS Vital Signs: Vital Signs Temp Pulse Resp BP Pulse Ox 100.2 F H 95 H 20 85/46 97 10/25/16 14:54 10/25/16 14:54 10/25/16 14:54 10/25/16 14:54 10/25/16 15:56 - REVIEWED ASSESSMENTS Nursing Assessment Reviewed: Yes Vitals Reviewed: Yes Progress - Results/Orders Results/Orders: Dr Alaniz agreed to admit her. ED Results Lab/Radiology - Lab Results Lab Results: Lab Results 10/25/16 10/25/16 15:00 15:00 WBC 24.93 K/ul H K/ul (4.00-12.00) RBC 3.63 M/ul L M/ul (3.90-5.20) Hgb 11.6 g/dL L g/dL (12.0-16.0) Hct 35.0 % % (34.5-46.5) MCV 96.5 fl fl (80.0-100.0) MCH 31.8 pg pg (28.0-34.0) MCHC 33.0 g/dL g/dL (30.0-36.0) RDW 15.1 % H % (11.3-14.3) Plt Count 202 K/mm3 K/mm3 (130-400) Seg Neutrophils % 84 % H % (39-79) Band Neutrophils % 13 % H % (0-12) Lymphocytes % 1 % L % (16-50) Monocytes % 2 % % (0-11) Toxic Granulation Present Plt Morphology Comment Normal (NORMAL) RBC Morph Comment Normal (NORMAL) Sodium 124 mmol/L L mmol/L (136-145) Potassium 3.9 mmol/L mmol/L (3.5-5.0) Chloride 89 mmol/L L mmol/L (98-110) Carbon Dioxide 32 mmol/L mmol/L (20-32) BUN 19 mg/dL mg/dL (10-26) Creatinine 1.4 mg/dL mg/dL (0.4-1.5) Estimated Creat Clear 69 Est GFR ( Amer) > 60 (60 - ) Est GFR (Non-Af Amer) 43 L (60 - ) Glucose 137 mg/dL H mg/dL (70-99) Calcium 8.7 mg/dL mg/dL (8.5-10.5) Total Bilirubin 0.3 mg/dL mg/dL (0.2-1.2) AST 23 U/L U/L (0-41) ALT 20 U/L U/L (0-45) Alkaline Phosphatase 95 U/L U/L (46-116) Creatine Kinase 46 U/L U/L (0-225) Total Protein 6.3 g/dL g/dL (6.0-8.5) Albumin 3.3 g/dL g/dL (3.0-5.5) - Orders Orders: ED Orders Category Date Time Status Assess pulse oximetry Q1H Care 10/25/16 14:59 Active CHEST 1 VIEW [RAD] Stat Exams 10/25/16 Ordered BLOOD CULTURE Stat Lab 10/25/16 15:00 Received CBC/PLATELET/DIFF Routine Lab 10/25/16 15:00 Completed CMP Routine Lab 10/25/16 15:00 Completed CREATINE KINASE Routine Lab 10/25/16 15:00 Completed URINALYSIS Routine Lab 10/25/16 15:50 Received 0.9 % Sodium Chloride [Normal Saline] 1,000 ml Med 10/25/16 15:00 Ordered IV Q10H 0.9 % Sodium Chloride [Normal Saline] 500 ml Med 10/25/16 15:08 Discontinued IV .STK-MED Altered Mental Status Physical - Physical Exam General Appearance: no acute distress Neuro/Psych: none other (is baseline according to nurses who know her) other (unable to test) HEENT: EOM's intact, no apparent trauma Neck: other (thick) Respiratory: no resp distress CVS: reg rate & rhythm Skin: warm/dry, normal color Extremities: no evidence of injury Discharge Clincal Impression: Sepsis secondary to UTI, Hypovolemia Hypothyroid Qualifiers: Hypothyroidism type: unspecified Qualified Code(s): E03.9 - Hypothyroidism, unspecified Referrals: Esther Child MD [Primary Care Provider] - 2 Days Home Medications: Ambulatory Orders Alprazolam [Xanax] 1 mg PO Q4 PRN u2 02/03/13 Paliperidone Palmitate [Invega Sustenna] 156 mg IM monthly 02/03/13 Alprazolam [Xanax] 1 mg PO QID 03/19/13 Cholecalciferol [Vitamin D-3] 5,000 unit PO DAILY 03/19/13 Docusate Sodium [Colace] 25 ml PO BID 03/19/13 Esomeprazole Magnesium [Nexium] 40 mg PO 717 03/19/13 Fluticasone Propionate [Flonase] 2 sprays SAM DAILY 03/19/13 Ipratropium/Albuterol Sulfate [Duoneb 0.5 mg-3 mg/3 ml Soln] 3 ml INH Q4 PRN 07/27 Levothyroxine Sodium [Synthroid] 100 mcg PO DAILY 03/19/13 Cetirizine HCl [Zyrtec] 10 mg PO D 02/15/14 Sennosides/Docusate Sodium [Senna Plus Tablet] 1 each PO DAILY 02/15/14 Phenytoin 4 ml PO QID #500 ml 06/21/16 Condition: Fair Disposition: ADMITTED INPATIENT Decision to Admit: [id number] Date of Decison to Admit: 10/25/16 Decision Time: 16:00
[2016-10-25] MEDS ORDERED: LEVOFLOXACIN 500MG/D5W 100ML 100 ML IV ONE (16:18)
[2016-10-25] MEDS ORDERED: PHENYTOIN PO SCH (17:00)
[2016-10-25] MEDS ORDERED: ESOMEPRAZOLE MAGNESIUM 40 MG PO SCH (17:00)
[2016-10-25] MEDS ORDERED: ALPRAZOLAM 1 MG PO SCH (17:00)
--- NOTE | 2016-10-25 18:15 | History and Physical Report ---
History of Present Illnes - History of Present Illness Reason for Visit: Urosepsis History of Present Illness: This is a 45 year old female known to me from a previous admission for urosepsis in April of this year. She is a regular patient of Dr. Esther Child/ NANNETTE Bruno, and was noted to have some foul urine on Sunday of this week. House staff say that a urine was sent to the lab, but for some reason it was not run. Jesenia continued to have fever and became unresponsive today and was brought to the ER for evaluation. She was noted to have gross pyuria on evaluation of her UA, and a markedly elevated white count. She is admitted for urosepsis. She will need to use her home medications, most of which are per tube due to lack of ready availability of these medications through local sources. - Past Medical History Cardiac: Other (History of VSD, repaired as an infant). 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 (Down's Syndrome, Mental retardation) Gastrointestinal: Other (Esophagitis, chronic aspiration) Heme/Onc: Anemia NOS Psych: Anxiety Endocrine: Hypothyroidism - Past Surgical History Past Surgical History: Other (Open heart surgery jesse , dental surgery, feeding tube placement) - Past Social History Smoke: No Alcohol: None Drugs: None Lives: Other (assisted) Domestic Violence: Negative - Health Maintenance Health Maintenance: Cholesterol Influenza Vaccine: Current for this Influenza Season Pneumonia Vaccine: Yes Resuscitation Status: No chest compressions, will accept mechanical ventilatory support - Unable to Obtain History Unable to Obtain: No Review of Systems - Review of Systems Constitutional: Fever, Chills, Sweats Eyes: negative: pain ENT: negative: Ear Pain, Ear Discharge Respiratory: negative: Cough, Shortness of Breath Cardiovascular: negative: Chest Pain Gastrointestinal: negative: Nausea, Vomiting Genitourinary: negative: Dysuria Musculoskeletal: negative: Neck Pain Skin: negative: Other Neurological: negative: Change in Speech (very few words) - Medications/Allergies Allergies/Adverse Reactions: Allergies Allergy/AdvReac Type Severity Reaction Status Date / Time ampicillin [Ampicillin] Allergy Unknown Verified 10/25/16 14:49 ampicillin trihydrate Allergy Unknown Verified 10/25/16 14:49 [From Principen] tetrahydrozoline HCl Allergy Unknown Verified 10/25/16 14:49 [From Visine] Penicillins AdvReac Rash Verified 10/25/16 14:49 Current Inpatient Medications: Current Inpatient Medications Sodium Chloride (Normal Saline) 1,000 mls @ 100 mls/hr IV Q10H EMIGDIO Last Admin: 10/25/16 15:04 Dose: 100 mls/hr Levofloxacin/Dextrose 500 mg/ (PREMIX BAG) 100 mls @ 100 mls/hr IV DAILY EMIGDIO Last Admin: 10/25/16 16:25 Dose: 100 mls/hr Miscellaneous (Alprazolam [Xanax]) 1 mg PO Q4 PRN PRN Reason: Anxiety Miscellaneous (Alprazolam [Xanax]) 1 mg PO QID EMIGDIO Miscellaneous (Cetirizine Hcl [Zyrtec]) 10 mg PO D EMIGDIO Miscellaneous (Cholecalciferol [Vitamin D-3]) 5,000 unit PO DAILY EMIGIDO Miscellaneous (Docusate Sodium [Colace]) 25 ml PO BID EMIGDIO Miscellaneous (Esomeprazole Magnesium [Nexium]) 40 mg PO 717 EMIGDIO Miscellaneous (Fluticasone Propionate [Flonase]) 2 sprays SAM DAILY EMIGDIO Miscellaneous (Ipratropium/Albuterol Sulfate [Duoneb 0.5 Mg-3 Mg/3 Ml Soln]) 3 ml INH Q4 PRN PRN Reason: wheezing, sob Miscellaneous (Levothyroxine Sodium [Synthroid]) 100 mcg PO DAILY EMIGDIO Miscellaneous (Paliperidone Palmitate [Invega Sustenna]) 156 mg IM monthly EMIGDIO Miscellaneous (Phenytoin [Phenytoin]) 4 ml PO QID EMIGDIO Miscellaneous (Sennosides/Docusate Sodium [Senna Plus Tablet]) 1 each PO DAILY EMIGDIO Miscellaneous (Simethicone [Simethicone]) 80 mg PO QID PRN PRN Reason: Constipation Nitrofurantoin Macrocrystals (Macrobid) 100 mg PO BID EMIGDIO Exam - Exam Vital Signs: Vital Signs (72 hours) 10/25/16 16:55 Temperature 99.8 F H Pulse Rate [ 105 H Pulse ox] Respiratory 24 Rate Blood Pressure 104/61 [Right Arm] O2 Sat by Pulse 99 Oximetry General: Other (Anxious, apprehensive 45 year old female with Down's syndrome), Obese HEENT: Atraumatic, Edentulous Neck: No: Stridor Lungs: Decreased Air Movement Cardiovascular: Regular rate Murmur: Systolic Murmur (II/ TIFF) Heart Murmur Grade: II Abdomen: Normal bowel sounds, Other (12 kyrgyz feeding tube is in place) Genitourinary: Other Male Genitourinary: No: Other Female Genitourinary: No: Other Integumentary: Normal, [place] Extremities: No clubbing, No cyanosis, Other (scar on right ankle from catheter for heart surgery, left sided thoracotomy scar) Neurological: Generalized Weakness Psych/Mental Status: Other (Non verbal at time of admission except for single words) Assessment/Plan - Assessment/Plan (1) Hypothyroid Status: Acute Current Visit: Yes Qualifiers: Hypothyroidism type: unspecified Qualified Code(s): E03.9 - Hypothyroidism , unspecified Assessment: Continue current dose of levothyroxine (2) Sepsis secondary to UTI Status: Acute Current Visit: Yes Assessment: Start IV ceftriaxone (3) Chronic pulmonary aspiration Status: Acute Current Visit: No Qualifiers: Encounter type: subsequent encounter Qualified Code(s): T17.908D - Unspecified foreign body in respiratory tract, part unspecified causing other injury, subsequent encounter Assessment: Feeds using feeding tube (4) Down's syndrome Status: Acute Current Visit: No Assessment: Chronic Plan: Accommodate cognitive difficulties by explaining any procedures/communicating with family and caregivers from [facility] (5) Renal insufficiency Status: Acute Current Visit: No Assessment: Now with normal renal function VTE Assessment - RISK FACTOR SCORE VTE RISK FACTOR SCORES: AGE 40-60 YEARS, OBESITY, ANTICIPATED BED CONFINEMENT OR IMMOBILIZATION > 24 HOURS - RISK VTE HIGH RISK: SCORE OF 3-4 (RISK PROXIMAL DVT 4-8%) PROPHYLAXIS NEEDED ( Lovenox is ordered, SAMMY hose ordered)
[2016-10-25 18:42] VITALS: BMI 29.1
--- NOTE | 2016-10-25 19:00 | Diagnostic Imaging Report ---
ALDAIR LION [facility] [address] [facility] [address] [address] Report Submission Date: Oct 25, 2016 4:21:49 PM CDT Patient Study Name: MANJULA DE LOS SANTOS Date: Oct 25, 2016 4:01:51 PM CDT Modality Type: CR Gender: F Description: CHEST : 72 Institution: [facility] Physician: ALDAIR LION Examination: Portable chest History: Chest discomfort Findings: Single view of the chest demonstrates a normal cardiac silhouette. Prominence of the mediastinum: Likely due to hypoventilated inspiratory effort. Lung arredondo demonstrate increased basilar haziness. No effusion. Osseous structures are appropriate for age. Impression: Poor inspiratory effort. Basilar haziness possibly due to decreased inspiration. No effusion. Electronically signed on Oct 25, 2016 4:21:49 PM CDT by: Marcel MERCADO
[2016-10-25] MEDS ORDERED: ONDANSETRON HCL/PF 4 MG/ 2ML VIAL IVP PRN (19:50)
[2016-10-25] MEDS ORDERED: 0.9 % SODIUM CHLORIDE 50 ML IV ONE ×2 (20:10→20:18)
[2016-10-25] MEDS ORDERED: cefTRIAXone SODIUM 1 GM VIAL ONE ×2 (20:10→20:17)
[2016-10-25] MEDS: cefTRIAXone SODIUM 1 GM in 0.9 % SODIUM CHLORIDE 50 ML IV SCH (20:23)
[2016-10-25] MEDS: ENOXAPARIN SODIUM 30 MG/0.3 ML DISP.SYRIN SQ SCH ×2 (20:23→20:42)
[2016-10-25] MEDS: ALPRAZOLAM 0.5 MG TABLET PO SCH ×2 (20:24→20:45)
[2016-10-25] MEDS: BENZTROPINE MESYLATE 0.5 MG TAB PO SCH (20:25)
[2016-10-25] MEDS: NITROFURANTOIN 100 MG CAPSULE PO SCH (20:26)
[2016-10-25] MEDS: OXYBUTYNIN CHLORIDE 5 MG TABLET PO SCH (20:26)
[2016-10-25] MEDS ORDERED: ACETAMINOPHEN 160 MG/5 ML 60ML BOTTLE PO ONE (20:41)
[2016-10-25] MEDS ORDERED: PATIENT OWN MED 1 EACH EACH PEG SCH ×3 (21:00)
[2016-10-25] MEDS ORDERED: DOCUSATE SODIUM PO SCH (21:00)
[2016-10-25] MEDS: ACETAMINOPHEN 325 MG TABLET PEG PRN (21:00)
[2016-10-25] MEDS: IPRATROPIUM/ALBUTEROL SULFATE 3 ML AMPUL.NEB NEB SCH (21:10)
[2016-10-25] MEDS: 0.9 % SODIUM CHLORIDE 1,000 ML IV SCH (23:24)
[2016-10-26] MEDS ORDERED: LEVOTHYROXINE SODIUM 100 MCG TABLET PO ONE (04:13)
[2016-10-26] MEDS: ACETAMINOPHEN 325 MG TABLET PEG PRN (05:51)
[2016-10-26] MEDS: LEVOTHYROXINE SODIUM 25 MCG TABLET PO SCH (05:52)
[2016-10-26] MEDS ORDERED: ENTERAL NUTRITION FORMULA PEG SCH (06:00)
[2016-10-26] MEDS: 0.9 % SODIUM CHLORIDE 1,000 ML IV SCH ×3 (08:31→23:40)
--- NOTE | 2016-10-26 08:43 | Inpatient Progress Note ---
Subjective - Required Recertification Statement I anticipate X number of days because-include discharge plan: 3 - Review of Systems Events since last encounter: Victorina slept well last night and is feeling better this morning. We are working on making sure that her medications are correct. Her feeding tube is still patent and working well. She has required some tylenol for her fever, and she remains with a low grade fever. She is breathing well and her O2 saturations are stable. General: Chills, Night Sweats HEENT: Denies: Head Aches Pulmonary: Denies: Dyspnea Cardiovascular: Denies: Chest Pain Gastrointestinal: Nausea, Vomiting (improved) Genitourinary: Denies: Dysuria Musculoskeletal: Denies: Neck Pain Neurological: Weakness Objective - Exam Vitals and I&O: Vital Signs Temp 100.9 F H 10/26/16 05:56 Pulse 107 H 10/26/16 05:56 Resp 22 10/26/16 05:56 BP 91/52 10/26/16 05:56 Pulse Ox 97 10/26/16 07:00 Intake & Output 10/25/16 10/25/16 10/26/16 11:59 23:59 11:59 Intake Total 0 Output Total 800 Balance 0 -800 Intake: Oral 0 Output: Urine 800 Other: Voiding Method Indwelling Catheter General: Cooperative, Other (sleepy) HEENT: Atraumatic, PERRLA Neck: Supple Lungs: Decreased Air Movement Cardiovascular: Regular rate Abdomen: Normal bowel sounds Extremities: No clubbing, No cyanosis Skin: [place] Neurological: Generalized Weakness Psych/Mental Status: Other (at baseline) - Results Results: Laboratory Results WBC 24.93 K/ul (4.00-12.00) H 10/25/16 15:00 RBC 3.63 M/ul (3.90-5.20) L 10/25/16 15:00 Hgb 11.6 g/dL (12.0-16.0) L 10/25/16 15:00 Hct 35.0 % (34.5-46.5) 10/25/16 15:00 MCV 96.5 fl (80.0-100.0) 10/25/16 15:00 MCH 31.8 pg (28.0-34.0) 10/25/16 15:00 MCHC 33.0 g/dL (30.0-36.0) 10/25/16 15:00 RDW 15.1 % (11.3-14.3) H 10/25/16 15:00 Plt Count 202 K/mm3 (130-400) 10/25/16 15:00 Seg Neutrophils % 84 % (39-79) H 10/25/16 15:00 Band Neutrophils % 13 % (0-12) H 10/25/16 15:00 Lymphocytes % 1 % (16-50) L 10/25/16 15:00 Monocytes % 2 % (0-11) 10/25/16 15:00 Toxic Granulation Present 10/25/16 15:00 Plt Morphology Comment Normal (NORMAL) 10/25/16 15: RBC Morph Comment Normal (NORMAL) 10/25/16 15:00 Sodium 124 mmol/L (136-145) L 10/25/16 15:00 Potassium 3.9 mmol/L (3.5-5.0) 10/25/16 15:00 Chloride 89 mmol/L (98-110) L 10/25/16 15:00 Carbon Dioxide 32 mmol/L (20-32) 10/25/16 15:00 BUN 19 mg/dL (10-26) 10/25/16 15:00 Creatinine 1.4 mg/dL (0.4-1.5) 10/25/16 15:00 Estimated Creat Clear 69 10/25/16 15:00 Est GFR ( Amer) > 60 (60-) 10/25/16 15:00 Est GFR (Non-Af Amer) 43 (60-) L 10/25/16 15:00 Glucose 137 mg/dL (70-99) H 10/25/16 15:00 Calcium 8.7 mg/dL (8.5-10.5) 10/25/16 15:00 Total Bilirubin 0.3 mg/dL (0.2-1.2) 10/25/16 15:00 AST 23 U/L (0-41) 10/25/16 15:00 ALT 20 U/L (0-45) 10/25/16 15:00 Alkaline Phosphatase 95 U/L (46-116) 10/25/16 15:00 Creatine Kinase 46 U/L (0-225) 10/25/16 15:00 Total Protein 6.3 g/dL (6.0-8.5) 10/25/16 15:00 Albumin 3.3 g/dL (3.0-5.5) 10/25/16 15:00 Urine Color Yellow (YELLOW) 10/25/16 15:50 Urine Appearance Cloudy (CLEAR) 10/25/16 15:50 Urine pH 6.5 (5.0 - 8.0) 10/25/16 15:50 Ur Specific [place] 1.010 (1.010-1.030) 10/25/16 15:50 Urine Protein 2+ mg/dL (NEGATIVE) H 10/25/16 15:50 Urine Ketones Negative mg/dL (NEGATIVE) 10/25/16 15:50 Urine Occult Blood 3+ (NEGATIVE) H 10/25/16 15:50 Urine Nitrite Negative (NEGATIVE) 10/25/16 15:50 Urine Bilirubin Negative (NEGATIVE) 10/25/16 15:50 Urine Urobilinogen 0.2 Eu (0.2-1.0) 10/25/16 15:50 Ur Leukocyte Esterase 3+ (NEGATIVE) H 10/25/16 15:50 Urine RBC 10-25 (0-2 HPF) H 10/25/16 15:50 Urine WBC 50-99 (0-5 HPF) H 10/25/16 15:50 Ur Squamous Epith Cells Few (NEG-FEW) 10/25/16 15:50 Urine Bacteria Many (NEGATIVE) H 10/25/16 15:50 Urine Glucose Negative mg/dL (NEGATIVE) 10/25/16 15:50 Assessment/Plan - Assessment/Plan (1) Hypothyroid Status: Acute Current Visit: Yes Qualifiers: Hypothyroidism type: unspecified Qualified Code(s): E03.9 - Hypothyroidism , unspecified Assessment: Chronic (2) Sepsis secondary to UTI Status: Acute Current Visit: Yes Assessment: Improved Plan: continue IV rocephin/fluids (3) Chronic pulmonary aspiration Status: Acute Current Visit: No Qualifiers: Encounter type: subsequent encounter Qualified Code(s): T17.908D - Unspecified foreign body in respiratory tract, part unspecified causing other injury, subsequent encounter Assessment: Continue feeding tube/Jevity (4) Down's syndrome Status: Acute Current Visit: No (5) Renal insufficiency Status: Acute Current Visit: No Assessment: Stable
[2016-10-26] MEDS ORDERED: CHOLECALCIFEROL 5000 UNIT PO SCH (09:00)
[2016-10-26] MEDS ORDERED: ACETAMINOPHEN 325 MG TABLET PEG PRN (09:00)
[2016-10-26] MEDS ORDERED: LEVOTHYROXINE SODIUM 100 MCG PO SCH (09:00)
[2016-10-26] MEDS ORDERED: DOCUSATE SODIUM PO SCH (09:00)
[2016-10-26] MEDS ORDERED: FLUTICASONE PROPIONATE NAS SCH (09:00)
[2016-10-26] MEDS ORDERED: LEVOFLOXACIN 500MG/D5W 100ML 500 MG in PREMIX BAG 1 BAG IV SCH (09:00)
[2016-10-26] MEDS ORDERED: CETIRIZINE HCL 10 MG PO SCH (09:00)
[2016-10-26] MEDS ORDERED: SENNOSIDES PO SCH (09:00)
[2016-10-26 09:08] LABS: MEAN CORPUSCULAR HEMOGLOBIN 31.7 pg (28.0-34.0); MEAN CORPUSCULAR VOLUME 99.7 fl (80.0-100.0)
[2016-10-26] MEDS: ALPRAZOLAM 0.5 MG TABLET PO SCH ×4 (09:30→20:29)
[2016-10-26] MEDS: RANITIDINE 15 MG/ML PEG SCH ×2 (09:30→20:30)
[2016-10-26] MEDS: BENZTROPINE MESYLATE 0.5 MG TAB PO SCH ×2 (09:30→20:29)
[2016-10-26] MEDS: CARBAMAZEPINE 100 MG/5 ML PEG SCH ×3 (09:30→17:17)
[2016-10-26] MEDS: [UNRECOGNIZED DRUG - OTHER] PEG SCH (09:30)
[2016-10-26] MEDS: RISPERIDONE PEG SCH (09:30)
[2016-10-26] MEDS: GUAIFENESIN PEG SCH ×3 (09:30→17:17)
[2016-10-26] MEDS: OXYBUTYNIN CHLORIDE 5 MG TABLET PO SCH ×2 (09:30→20:29)
[2016-10-26] MEDS: PROBIOTIC PEG SCH (09:30)
[2016-10-26] MEDS: DOCUSATE PEG SCH (09:30)
[2016-10-26] MEDS: NITROFURANTOIN 100 MG CAPSULE PO SCH ×2 (09:30→20:29)
[2016-10-26] MEDS: NEUDEXTA PEG SCH (09:30)
[2016-10-26] MEDS: CETIRIZINE 1 MG/ML PEG SCH (09:30)
[2016-10-26] MEDS: IPRATROPIUM/ALBUTEROL SULFATE 3 ML AMPUL.NEB NEB SCH ×4 (11:04→22:46)
[2016-10-26] MEDS: ENTERAL NUTRITION FORMULA PEG SCH ×2 (14:34→22:00)
[2016-10-26] MEDS: cefTRIAXone SODIUM 1 GM in 0.9 % SODIUM CHLORIDE 50 ML IV SCH (18:34)
[2016-10-26] MEDS ORDERED: RISPERIDONE PEG SCH (21:00)
[2016-10-27] MEDS: LEVOTHYROXINE SODIUM 25 MCG TABLET PO SCH (05:54)
[2016-10-27] MEDS: ENTERAL NUTRITION FORMULA PEG SCH (05:55)
[2016-10-27] MEDS: 0.9 % SODIUM CHLORIDE 1,000 ML IV SCH (07:26)
[2016-10-27] MEDS: OXYBUTYNIN CHLORIDE 5 MG TABLET PO SCH (08:01)
[2016-10-27] MEDS: ALPRAZOLAM 0.5 MG TABLET PO SCH ×2 (08:01→13:01)
[2016-10-27] MEDS: NITROFURANTOIN 100 MG CAPSULE PO SCH (08:01)
[2016-10-27] MEDS: NEUDEXTA PEG SCH (08:02)
[2016-10-27] MEDS: PROBIOTIC PEG SCH (08:02)
[2016-10-27] MEDS: CARBAMAZEPINE 100 MG/5 ML PEG SCH ×2 (08:04→13:01)
[2016-10-27] MEDS: DOCUSATE PEG SCH (08:05)
[2016-10-27] MEDS: RANITIDINE 15 MG/ML PEG SCH (08:06)
[2016-10-27] MEDS: GUAIFENESIN PEG SCH ×2 (08:07→13:01)
[2016-10-27] MEDS: CETIRIZINE 1 MG/ML PEG SCH (08:08)
[2016-10-27] MEDS: [UNRECOGNIZED DRUG - OTHER] PEG SCH (08:09)
[2016-10-27] MEDS: RISPERIDONE PEG SCH (08:10)
[2016-10-27] MEDS: BENZTROPINE MESYLATE 0.5 MG TAB PO SCH (08:15)
[2016-10-27] MEDS: IPRATROPIUM/ALBUTEROL SULFATE 3 ML AMPUL.NEB NEB SCH ×2 (08:22→13:56)
[2016-10-27 09:56] LABS: MEAN CORPUSCULAR HEMOGLOBIN 31.7 pg (28.0-34.0)
[2016-10-27 14:05] VITALS: BP 82/49
--- NOTE | 2016-10-27 15:28 | Discharge Summary ---
DATE OF ADMISSION: October 25, 2016 DATE OF DISCHARGE: October 27, 2016 DIAGNOSES ON THIS HOSPITALIZATION: 1. Urosepsis. 2. Hypothyroidism. 3. Chronic pulmonary aspiration. 4. Down's Syndrome. 5. Renal insufficiency. SUMMARIZATION OF ADMISSION HISTORY AND PHYSICAL: This is a 45-year-old female known to me from a previous admission for urosepsis in April of this year. She regularly sees Dr. Esther Child or Shay Rojas in [place]. She was noted to have some foul smelling urine on Sunday of this week. House staff initially had sent urine to the hospital. It is not sure what happen with that one, but when she did present to the emergency room after a period of unresponsiveness, she was noted to have gross pyuria and a markedly elevated white count of 24,000. She was admitted for sepsis. HOSPITAL COURSE: She was admitted and started on IV Rocephin and fluids. We continued all of the rest of her medications per tube. She has improved significantly and then in the next few days, she was discharged to home with continuation of all of her current medications with the addition of nitrofurantoin 25 mg per 5 mL, 10 mL p.o. b.i.d. ongoing and then cefuroxime 125 mg per 5 mL, 10 mL b.i.d. for 7 days. CONDITION ON DISCHARGE: She is discharged to home in improved condition. DISCHARGE INSTRUCTIONS: She will follow up with Dr. Child next week. JESS
[2016-11-01] MEDS ORDERED: CHOLECALCIFEROL 1,000 UNIT TABLET PO SCH (06:00)
== END 2016-10-27 15:35 | disposition home or self-care (01) | DRG 872 ==
LOC: ED 14:37 → SOUTH 16:21
PROVIDERS: ADMIT Family Medicine; ATTEND Family Medicine
DX: A41.9 Sepsis, unspecified organism (principal); N39.0 Urinary tract infection, site not specified; E03.9 Hypothyroidism, unspecified; T17.920A Food in respiratory tract, part unspecified causing asphyxiation, initial encounter; Q90.9 Down syndrome, unspecified; N28.9 Disorder of kidney and ureter, unspecified
CPT/HCPCS: 36415; 71010; 80053; 81002; 82550; 85025; 85027; 87040; 87086; 99223; 99232; 99238; 99284; J0696; J1650; J1956; J2405; J7060; A9270-GY; J7030; S1016

== ENCOUNTER 2016-12-08 14:25 | Outpatient (CLI) | payer OTHER ==
--- NOTE | 2016-12-08 15:49 | Diagnostic Imaging Report ---
SHEMAR TAYLOR [facility] [address] [facility] [address] [address] Report Submission Date: Dec 08, 2016 3:24:12 PM CDT Patient Study Name: MANJULA DE LOS SANTOS Date: Dec 08, 2016 2:42:15 PM CDT Modality Type: CR Gender: F Description: ABDOMEN : 72 Institution: [facility] Physician: SHEMAR TAYLOR Examination: Abdomen History: J Tube placement Findings: 3 views obtained of the abdomen. External tube projecting over the left midabdomen. Contrast was injected which appears to spill into the small bowel. Impression: Injected contrast spills into small bowel. Electronically signed on Dec 08, 2016 3:24:12 PM CDT by: Marcel MERCADO
== END 2016-12-08 14:26 ==
LOC: RAD 14:25
PROVIDERS: ATTEND Nurse Practitioner Family
DX: Z93.4 Other artificial openings of gastrointestinal tract status (principal); K31.84 Gastroparesis; K22.70 Barrett's esophagus without dysplasia
CPT/HCPCS: 74000; Q9966

== ENCOUNTER 2017-02-15 10:12 | Outpatient (CLI) | payer OTHER | END 2017-02-15 10:13 | LOC: LAB 10:12 | PROVIDERS: ATTEND Nurse Practitioner Family | DX: N39.0 Urinary tract infection, site not specified (principal); R50.9 Fever, unspecified | CPT/HCPCS: 87086; 87186 ==

== ENCOUNTER 2017-02-22 08:54 | Outpatient (CLI) | payer OTHER ==
[2017-02-22 09:15] LABS: BASOPHILS % 1.4 (0.0-1.5); EOSINOPHILS % 3.8 % (0.0-6.8); MEAN CORPUSCULAR HEMOGLOBIN 31.6 pg (28.0-34.0); MEAN CORPUSCULAR VOLUME 100.3 fl (80.0-100.0); MONOCYTES % 4.2 % (0.0-11.0); NEUTROPHILS # 2.8 # k/uL (1.4-7.7)
[2017-02-22 09:56] LABS: eGFR (African) > 60; eGFR (Non-African) > 60
== END 2017-02-22 08:55 ==
LOC: LAB 08:54
PROVIDERS: ATTEND Nurse Practitioner Psychiatric/Mental Health
DX: Z51.81 Encounter for therapeutic drug level monitoring (principal); Z79.899 Other long term (current) drug therapy
CPT/HCPCS: 36415; 80053; 80156; 82746; 84439; 85025

== ENCOUNTER 2017-02-28 09:37 | Outpatient (CLI) | payer OTHER ==
--- NOTE | 2017-02-28 15:38 | Diagnostic Imaging Report ---
[facility] [address] [facility] [address] [place], [place]. [address] Report Submission Date: Feb 28, 2017 10:50:17 AM STAFF REGISTERED NURSE Patient Study Name: MANJULA DE LOS SANTOS Date: Feb 28, 2017 10:04:48 AM STAFF REGISTERED NURSE Modality Type: CR Gender: F Description: ABDOMEN : 72 Institution: Physician: SISTER SIMÓN DESHPANDE Examination: Obstruction series History: J tube placement Comparison exam: 08 December 2016 Findings: 2 imaging of the abdomen demonstrates a J-tube projecting over the central abdominal region. No injected contrast identified. No abnormal dilation of the large or small bowel. Curvature of the lumbar spine to the left. Impression: J-tube midabdomen. No contrast injected to confirm position. Electronically signed on Feb 28, 2017 10:50:17 AM STAFF REGISTERED NURSE by: Marcel MERCADO
== END 2017-02-28 10:00 ==
LOC: RAD 09:37
PROVIDERS: ATTEND Nurse Practitioner Family
DX: Z93.1 Gastrostomy status (principal)
CPT/HCPCS: 74000

== ENCOUNTER 2017-04-04 11:02 | Outpatient (CLI) | payer OTHER ==
[2017-04-04 11:23] LABS: EOSINOPHILS % 2.4 % (0.0-6.8); MEAN CORPUSCULAR HEMOGLOBIN 33.2 pg (28.0-34.0); MEAN CORPUSCULAR VOLUME 97.8 fl (80.0-100.0); MONOCYTES % 9.6 % (0.0-11.0); NEUTROPHILS # 2.4 # k/uL (1.4-7.7)
[2017-04-04 11:51] LABS: eGFR (African) > 60; eGFR (Non-African) > 60
== END 2017-04-04 11:03 ==
LOC: LAB 11:02
PROVIDERS: ATTEND Nurse Practitioner Psychiatric/Mental Health
DX: Z79.899 Other long term (current) drug therapy (principal)
CPT/HCPCS: 36415; 80053; 85025

== ENCOUNTER → 2017-04-20 | Outpatient (CLI) | payer OTHER ==
[2017-04-20 09:16] LABS: BASOPHILS % 1.5 (0.0-1.5); EOSINOPHILS % 2.6 % (0.0-6.8); MEAN CORPUSCULAR VOLUME 98.9 fl (80.0-100.0); MONOCYTES % 5.7 % (0.0-11.0); NEUTROPHILS # 2.8 # k/uL (1.4-7.7)
[2017-04-20 09:41] LABS: eGFR (African) > 60; eGFR (Non-African) > 60
== END ==
LOC: LAB 08:39
PROVIDERS: ATTEND Family Medicine
DX: R56.9 Unspecified convulsions (principal); Z79.899 Other long term (current) drug therapy
CPT/HCPCS: 36415; 80053; 80156; 85025

== ENCOUNTER 2017-06-15 21:01 | Outpatient (CLI) | payer OTHER ==
--- NOTE | 2017-06-15 23:36 | Diagnostic Imaging Report ---
MILO ERICKSON [facility] [address] [facility].[address] [address] Report Submission Date: Jun 15, 2017 9:39:37 PM BRAND REPRESENTATIVE Patient Study Name: MANJULA DE LOS SANTOS Date: Jun 15, 2017 9:16:22 PM BRAND REPRESENTATIVE Modality Type: DX Gender: F Description: ABDOMEN : 72 Institution: [facility] Physician: MILO ERICKSON Sngle view of the of the abdomen History: J TUBE PLACEMENT Comparison: None available at the time of dictation Jejunostomy tube is seen in the midabdomen, contrast has not been injected to confirm position. Mildly distended bowel loops are seen in the left hemiabdomen. Stool in the right colon. Levoscoliosis of the lumbar spine. Impression: 1. Jejunostomy tube projects over the left midabdomen, no contrast injected to confirm its position. Electronically signed on Jun 15, 2017 9:39:37 PM BRAND REPRESENTATIVE by: Yvette MERCADO
== END 2017-06-15 21:02 ==
LOC: RAD 21:01
PROVIDERS: ATTEND Nurse Practitioner Family
DX: Z93.1 Gastrostomy status (principal)
CPT/HCPCS: 74018

== ENCOUNTER 2017-07-04 11:36 | Outpatient (CLI) | payer OTHER ==
[2017-07-04 11:51] LABS: BASOPHILS % 0.9 (0.0-1.5); EOSINOPHILS % 1.9 % (0.0-6.8); MEAN CORPUSCULAR HEMOGLOBIN 32.7 pg (28.0-34.0); MEAN CORPUSCULAR VOLUME 98.4 fl (80.0-100.0); NEUTROPHILS # 3.4 # k/uL (1.4-7.7)
[2017-07-04 12:36] LABS: eGFR (African) > 60; eGFR (Non-African) > 60
[2017-07-04 19:01] LABS: SERUM IRON 43 ug/dL (37-145)
== END 2017-07-04 11:38 ==
LOC: LAB 11:36
PROVIDERS: ATTEND Nurse Practitioner Psychiatric/Mental Health
DX: Z51.81 Encounter for therapeutic drug level monitoring (principal); Z79.899 Other long term (current) drug therapy
CPT/HCPCS: 36415; 80053; 82608; 82746; 83540; 83550; 85025

== ENCOUNTER 2017-07-20 14:33 | Outpatient (CLI) | payer OTHER | END 2017-07-20 14:40 | LOC: LAB 14:33 | PROVIDERS: ATTEND Family Medicine | DX: R73.9 Hyperglycemia, unspecified (principal); Z97.8 Presence of other specified devices | CPT/HCPCS: 36415; 83525 ==

== ENCOUNTER 2017-07-25 13:58 | Outpatient (CLI) | payer OTHER ==
--- NOTE | 2017-07-25 20:35 | Diagnostic Imaging Report ---
SHEMAR TAYLOR~ [facility] [address] [facility].[address] [address] ~ ~ ~ ~ Report Submission Date: Jul 25, 2017 2:35:37 PM CDT Patient ~ Study Name: MANJULA DE LOS SANTOS ~ Date: Jul 25, 2017 2:10:57 PM CDT ~ Modality Type: DX Gender: F ~ Description: CHEST : 72 ~ Institution: [facility] Physician: SHEMAR TAYLOR ~ ~ ~ Examination: PA and lateral chest. History: Evaluate lung arredondo. CXR, HYPOXIA AND COUGH, HX OF RESPIRATORY FAILURE , PT UNABLE TO FOLLOW BREATHING INSTRUCTIONS (Hx) Comparison exam: 25 October 2016 Findings: PA lateral chest demonstrate a normal cardiac and mediastinal silhouette. Diffuse bilateral parenchymal haziness. Mild obscuration of the retrocardiac region. Elevated left hemidiaphragm. Articular degenerative changes. Impression: Increased diffuse parenchymal haziness suggesting congestive edema/ failure. Correlate clinically. ~ Electronically signed on Jul 25, 2017 2:35:37 PM CDT by: Marcel MERCADO
== END 2017-07-25 14:00 ==
LOC: RAD 13:58
PROVIDERS: ATTEND Family Medicine
DX: R09.02 Hypoxemia (principal); R05 Cough; Z87.09 Personal history of other diseases of the respiratory system
CPT/HCPCS: 71046

== ENCOUNTER 2017-07-30 15:28 | Outpatient (CLI) | payer OTHER ==
[2017-07-30 15:40] LABS: APPEARANCE,URINE CLOUDY (CLEAR); COLOR,URINE YELLOW (YELLOW)
[2017-07-30 15:41] LABS: OCCULT BLOOD,URINE 3+ (NEGATIVE); PH URINE 8.5 (5.0 - 8.0); UROBILINOGEN URINE 0.2 Eu (0.2-1.0)
== END 2017-07-30 15:30 ==
LOC: LAB 15:28
PROVIDERS: ATTEND Nurse Practitioner Family
DX: R30.0 Dysuria (principal)
CPT/HCPCS: 81002; 87086

== ENCOUNTER 2017-08-07 14:20 | Outpatient (CLI) | payer OTHER | END 2017-08-07 14:23 | LOC: CARD 14:20 | PROVIDERS: ATTEND Internal Medicine Cardiovascular Disease | DX: I50.9 Heart failure, unspecified (principal) ==

== ENCOUNTER 2017-08-28 08:18 | Outpatient (CLI) | payer OTHER ==
[2017-08-28 08:38] LABS: EOSINOPHILS % 3.2 % (0.0-6.8); MEAN CORPUSCULAR VOLUME 106.2 fl (80.0-100.0); MONOCYTES % 6.3 % (0.0-11.0); NEUTROPHILS # 2.7 # k/uL (1.4-7.7)
[2017-08-28 20:00] LABS: TOTAL PROTEIN 7.4 g/dL (6.0-8.5)
[2017-08-29 18:01] LABS: SERUM IRON 54 ug/dL (37-145)
== END 2017-08-28 08:20 ==
LOC: LAB 08:18
PROVIDERS: ATTEND Family Medicine
DX: R56.9 Unspecified convulsions (principal); D64.9 Anemia, unspecified; Z79.899 Other long term (current) drug therapy; D51.9 Vitamin B12 deficiency anemia, unspecified; E03.9 Hypothyroidism, unspecified
CPT/HCPCS: 36415; 80053; 80156; 82306; 82608; 82728; 82746; 83540; 83550; 84439; 85025

== ENCOUNTER 2017-09-05 08:42 | Outpatient (CLI) | payer OTHER | END 2017-09-05 09:57 | LOC: LAB 08:42 | PROVIDERS: ATTEND Nurse Practitioner Family | DX: Z51.81 Encounter for therapeutic drug level monitoring (principal); F39 Unspecified mood [affective] disorder | CPT/HCPCS: 36415; 80156 ==

== ENCOUNTER 2017-09-21 08:35 | Outpatient (CLI) | payer OTHER | END 2017-09-21 08:36 | LOC: LAB 08:35 | PROVIDERS: ATTEND Psychiatry & Neurology Psychiatry | DX: F31.0 Bipolar disorder, current episode hypomanic (principal) | CPT/HCPCS: 36415; 80156 ==

== ENCOUNTER 2018-06-05 23:23 | Inpatient (IN) | payer MEDICARE, OTHER ==
[2018-06-06 00:09] LABS: MEAN CORPUSCULAR HEMOGLOBIN 33.5 pg (28.0-34.0)
[2018-06-06 00:19] LABS: eGFR (Non-African) > 60
[2018-06-06] MEDS ORDERED: 0.9 % SODIUM CHLORIDE 500 ML IV ONE (00:57)
[2018-06-06] MEDS ORDERED: cefTRIAXone SODIUM 1 GM in 0.9 % SODIUM CHLORIDE(MINIBAG+ 50 ML IV ONE (00:58)
--- NOTE | 2018-06-06 01:01 | ED Physician Documentation ---
General Adult - HISTORIAN Historian: other (caregiver) - HPI Stated Complaint: "She has a fever and she gets septic very quickly" Chief Complaint: General Adult Further Comments: yes (47 year old Downs syndrome patient brought in by care givers for evaluation. Patient had fever tonight, staff reports she gets sick very quickly. Supra was changed Saturday 06/03 at 1600 by caregiver.) - ROS CONST: fever, other (per caregiver) EYES/ENT: none CVS/RESP: none GI/: denies: vomiting, diarrhea MS/SKIN/LYMPH: none - PAST HX Past History: renal disease, other (GERD, gastroparesis, chronic constipation, peg tube, congenital heart defect, Downs, hypothyroidism, anxiety) Other History: seizure disorder, other (suprapubic catheter, chronic aspiration, chronic constipation) Allergies/Adverse Reactions: Allergies Allergy/AdvReac Type Severity Reaction Status Date / Time ampicillin [Ampicillin] Allergy Unknown Verified 06/05/18 23:53 ampicillin trihydrate Allergy Unknown Verified 06/05/18 23:53 [From Principen] tetrahydrozoline HCl Allergy Unknown Verified 06/05/18 23:53 [From Visine] Penicillins AdvReac Rash Verified 06/05/18 23:53 Ampicillin Allergy Mild Uncoded 06/05/18 23:53 Ampicillin Trihydrate Allergy Mild Uncoded 06/05/18 23:53 Home Medications: Ambulatory Orders Medication Instructions Recorded Cholecalciferol [Vitamin D-3] 5,000 unit PO DAILY 03/19/13 Docusate Sodium [Colace] 25 ml PO BID 03/19/13 Fluticasone Propionate [Flonase] 2 sprays SAM DAILY 03/19/13 Ipratropium/Albuterol Sulfate 3 ml INH Q4 PRN 03/19/13 [Duoneb 0.5 mg-3 mg/3 ml Soln] Cetirizine HCl [Zyrtec] 10 mg PO D 02/15/14 Alprazolam [Xanax] 0.5 mg PO QID 06/06/18 Levothyroxine Sodium 88 mcg PO DAILY 06/06/18 - SOCIAL HX Smoking History: non-smoker - FAMILY HX Family History: No - VITAL SIGNS Vital Signs: Vital Signs Temp Pulse Resp BP Pulse Ox 98.2 F 86 16 113/60 98 06/05/18 23:30 06/05/18 23:30 06/05/18 23:30 06/05/18 23:30 06/05/18 23:30 - REVIEWED ASSESSMENTS Nursing Assessment Reviewed: Yes Vitals Reviewed: Yes Progress - Additional EKG/XRAY/Consults Time Called: 01:30 Consult/PCP: Dr Olson - accepted for admission ED Results Lab/Radiology - Lab Results Lab Results: Lab Results 06/06/18 06/05/18 23:59 23:59 WBC 15.30 K/ul H K/ul (4.00-12.00) RBC 4.14 M/ul M/ul (3.90-5.20) Hgb 13.8 g/dL g/dL (12.0-16.0) Hct 41.9 % % (34.5-46.5) MCV 101.0 fl H fl (80.0-100.0) MCH 33.5 pg pg (28.0-34.0) MCHC 33.0 g/dL g/dL (30.0-36.0) RDW 12.8 % % (11.3-14.3) Plt Count 237 K/mm3 K/mm3 (130-400) Sodium 130 mmol/L L mmol/L (136-145) Potassium 4.4 mmol/L mmol/L (3.5-5.1) Chloride 92 mmol/L L mmol/L (98-107) Carbon Dioxide 30 mmol/L mmol/L (22-30) BUN 15 mg/dL mg/dL (7-17) Creatinine 0.71 mg/dL mg/dL (0.52-1.04) Estimated Creat Clear 108 Est GFR ( Amer) > 60 (60 - ) Est GFR (Non-Af Amer) > 60 (60 - ) Glucose 100 mg/dL mg/dL (74-106) Calcium 8.4 mg/dL mg/dL (8.4-10.2) Total Bilirubin 0.2 mg/dL mg/dL (0.2-1.3) AST 65 U/L H U/L (15-46) ALT 29 U/L U/L (13-69) Alkaline Phosphatase 105 U/L U/L (38-126) Total Protein 7.1 g/dL g/dL (6.3-8.2) Albumin 3.8 g/dL g/dL (3.5-5.0) - Radiology Radiology Impressions: Chest, one view History: Cough and hypoxia. Findings: Heart size normal. Diffuse bilateral interstitial infiltrate/edema is present. No pleural effusion or pneumothorax. Impression: 1. Bilateral interstitial infiltrate/edema present. Electronically signed on Jun 06, 2018 1:07:54 AM TRUCK DRIVER HEAVY by: Timothy Jett - Orders Orders: ED Orders Category Date Time Status Further Nursing Orders 1T Care 06/06/18 00:14 Active CHEST 1VIEW [RAD] Stat Exams 06/06/18 00:14 Ordered BLOOD CULTURE Stat Lab 06/06/18 Ordered CBC PLATELETS NO DIFF Stat Lab 06/05/18 23:38 Ordered CBC PLATELETS NO DIFF Stat Lab 06/06/18 23:59 Completed CMP Stat Lab 06/05/18 23:59 Completed INFLUENZA A&B Stat Lab 06/05/18 Uncollected LACTATE Stat Lab 06/06/18 00:48 Ordered UA W/MICRO IF INDICATED Stat Lab 06/06/18 00:15 Ordered 0.9 % Sodium Chloride [Normal Saline] 500 ml Med 06/06/18 00:57 Active IV NOW cefTRIAXone SODIUM [Rocephin] 1 gm Med 06/06/18 00:58 Active 0.9 % Sodium Chloride(Minibag+ [Normal Saline (Minibag+ )] 50 ml IV NOW General Adult Physical Exam - PHYSICAL EXAM GENERAL APPEARANCE: no distress EENT: eye inspection normal, ENT inspection normal, pharynx normal, no signs of dehydration, ENOC, other (downs facial features). No: dry mucous membranes RESPIRATORY: no resp distress, chest non-tender, breath sounds normal CVS: reg rate & rhythm, heart sounds normal, equal pulses, no murmur, no gallop, PMI nml, no JVD, no friction rub, 24 ABDOMEN: soft, no organomegaly, normal bowel sounds, no abdominal bruit, no distension, other (supra pubic catheter) SKIN: warm/dry, pallor EXTREMITIES: no evidence of injury, no edema NEURO: other (non-verbal; calm and cooperative with treatments, MATIAS, at her baseline per rn coronary care unit. ) Discharge Clincal Impression: Sepsis secondary to UTI, Hyponatremia, Down's syndrome Condition: Stable Disposition: ADMITTED INPATIENT Decision to Admit: [id number] Decision Time: 01:29
[2018-06-06] MEDS ORDERED: CEFAZOLIN SODIUM/DEXTROSE,ISO 50 ML IV ONE ×2 (01:03→09:09)
[2018-06-06 01:21] LABS: EOSINOPHILS % 2 % (0-7); HYPOCHROMASIA 1+ (NEGATIVE); MONOCYTES % 5 % (0-11); SEGMENTED NEUTROPHILS % 38 % (39-79)
[2018-06-06 01:22] LABS: PLT EST. EST. AGREES W/PLT CT
[2018-06-06] MEDS ORDERED: cefTRIAXone SODIUM 1 GM INJ ONE (01:45)
[2018-06-06] MEDS ORDERED: 0.9 % SODIUM CHLORIDE 100 ML IV ONE (01:46)
[2018-06-06] MEDS ORDERED: ONDANSETRON HCL/PF 4 MG/ 2ML VIAL IVP ONE (02:33)
[2018-06-06 04:01] VITALS: BMI 29.1
--- NOTE | 2018-06-06 04:27 | Diagnostic Imaging Report ---
AMAN DESAI (MACHINE STONE POLISHER APPRENTICE) - ER [facility] [address] [address] Report Submission Date: Jun 06, 2018 1:07:54 AM SAUSAGE INSPECTOR Patient Study Name: MANJULA DE LOS SANTOS Date: Jun 06, 2018 12:50:05 AM SAUSAGE INSPECTOR Modality Type: DX Gender: F Description: CHEST 1VIEW : 72 Institution: [facility] Physician: AMAN DESAI (JACI) - ER Chest, one view History: Cough and hypoxia. Findings: Heart size normal. Diffuse bilateral interstitial infiltrate/edema is present. No pleural effusion or pneumothorax. Impression: 1. Bilateral interstitial infiltrate/edema present. Electronically signed on Jun 06, 2018 1:07:54 AM SAUSAGE INSPECTOR by: Timothy MERCADO
[2018-06-06 07:22] LABS: OCCULT BLOOD,URINE 3+ (NEGATIVE); PH URINE 8.5 (5.0 - 8.0); UROBILINOGEN URINE 0.2 Eu (0.2-1.0)
--- NOTE | 2018-06-06 08:08 | History and Physical Report ---
History of Present Illnes - History of Present Illness Reason for Visit: Weakness History of Present Illness: Patient lives in a [facility] in [place]. She has a permanent suprapubic catheter for retention and has chronic UTI's. She takes bactrim bid every day. On day of transfer, staff noted she wasn't acting like herself. She has had urosepsis in the past so staff has pretty stringent criteria to watch her for recurrence. They tell me she "spiked a fever" of 99. Then they noted her BP drop over 30 min until it was in the 80's. Ambulance transfer to [facility] ER. She was found to have an elevated WBC and large bandemia. Blood and urine cultures sent. She responded well to IV bolus. She has Down's Syndrome. She has a PEG tube due to aspiration. Has been tolerating tube feeds without incident. - Past Medical History Cardiac: Other (History of VSD, repaired as an infant). denies: AFIB LOLLYPOP MACHINE OPERATOR: Other (Down's Syndrome, Mental retardation) Gastrointestinal: Other (Esophagitis, chronic aspiration) Heme/Onc: Anemia NOS Psych: Anxiety Endocrine: Hypothyroidism - Past Surgical History Past Surgical History: Other (Open heart surgery jesse , dental surgery, feeding tube placement) - Past Family History Mother Family History: CAD, DM, Father Family History: CAD, - Past Social History Smoke: No Alcohol: None Drugs: None Lives: Other ([facility]) Domestic Violence: Negative - Health Maintenance Health Maintenance: Cholesterol Influenza Vaccine: Current for this Influenza Season Pneumonia Vaccine: Yes Resuscitation Status: Resusciation Status Resuscitation Status Full Code Review of Systems - Review of Systems Constitutional: Fever, Weakness Eyes: negative: conjunctivae inflammation ENT: Nose Discharge (takes mucinex routinely every day. Takes flonase and zyrtec daily.). negative: Ear Discharge Respiratory: negative: Cough, Shortness of Breath Cardiovascular: negative: Chest Pain Gastrointestinal: negative: Nausea, Vomiting, Abdominal Pain, Diarrhea Genitourinary: negative: Incontinence (Has a catheter) Musculoskeletal: negative: Back Pain Skin: negative: Rash Neurological: Weakness, Other ("Acting differently" per staff.) - Medications/Allergies Allergies/Adverse Reactions: Allergies Allergy/AdvReac Type Severity Reaction Status Date / Time ampicillin trihydrate Allergy Unknown Verified 06/05/18 23:53 [From Principen] tetrahydrozoline HCl Allergy Unknown Verified 06/05/18 23:53 [From Visine] Penicillins AdvReac Rash Verified 06/05/18 23:53 Home Medications: Home Medications Alprazolam [Xanax] 0.5 mg PO QID 06/06/18 Benztropine Mesylate 0.5 mg JT BID 06/06/18 Carbamazepine [Tegretol] 100 mg JT TID 06/06/18 Dextromethorphan HBr/Quinidine [Nuedexta] 1 cap JT DAILY 06/06/18 Docusate Sodium [Colace] 06/06/18 Docusate Sodium [Colace] 10 ml JT DAILY 06/06/18 L.acidoph,Paracasei, B.lactis [Probiotic] 1 cap JT DAILY 06/06/18 Levothyroxine Sodium 88 mcg JT DAILY 06/06/18 Levothyroxine Sodium 88 mcg PO DAILY 06/06/18 Omeprazole Magnesium [Prilosec] 20 pkt JT BID 06/06/18 Polyethylene Glycol 3350 [Miralax] 17 gm JT DAILY 06/06/18 Risperidone 0.5 mg JT Q12 06/06/18 guaiFENesin DM [Robitussin Dm] 10 ml JT TID 06/06/18 Current Inpatient Medications: Current Inpatient Medications Alprazolam (Xanax) 0.5 mg PO QID EMIGDIO Stop: 06/20/18 07:59 Benztropine Mesylate (Cogentin) 0.5 mg PO BID EMIGDIO Carbamazepine (Tegretol) 100 mg PO TID EMIGDIO Docusate Sodium (Colace) 100 mg PEG DAILY EMIGDIO Enoxaparin Sodium (Lovenox) 40 mg SQ D ONE Stop: 06/06/18 09:01 Guaifenesin (Robitussin) 200 mg PO Q8H EMIGDIO CEFTRIAXONE IN IS-OSM DEXTROSE (1 gm/ PREMIX BAG) 50 mls @ 100 mls/hr IV QDAY EMIGDIO Sodium Chloride (Normal Saline) 1,000 mls @ 100 mls/hr IV Q10H EMIGDIO Levothyroxine Sodium (Synthroid) 100 mcg PEG 0700 EMIGDIO Miscellaneous (Patient Own Med) 1 each PEG 717 EMIGDIO Miscellaneous (Patient Own Med) 1 each PEG DAILY EMIGDIO Polyethylene Glycol (Miralax) 17 gm PEG 1100 EMIGDIO Risperidone (Risperdal) 0.5 mg PO AM EMIGDIO Risperidone (Risperdal) 1 mg PO HS EMIGDIO Exam - Exam Vital Signs: Vital Signs (72 hours) 06/05/18 06/06/18 06/06/18 23:30 01:30 01:36 Temperature 98.2 F 98.6 F Pulse Rate [ 86 72 Left Pulse ox] Respiratory 16 16 Rate Blood Pressure 95/44 [Left Arm] Blood Pressure 113/60 [Right Arm] O2 Sat by Pulse 98 97 97 Oximetry 06/06/18 06/06/18 06/06/18 02:00 05:27 05:54 Temperature 98.6 F 97.2 F L Pulse Rate [ 72 77 Left Pulse ox] Respiratory 16 16 16 Rate Blood Pressure 95/44 113/62 [Left Arm] Blood Pressure [Right Arm] O2 Sat by Pulse 97 98 Oximetry 06/06/18 05:56 Temperature Pulse Rate [ Left Pulse ox] Respiratory Rate Blood Pressure [Left Arm] Blood Pressure [Right Arm] O2 Sat by Pulse 98 Oximetry General: Alert, Cooperative, No acute distress. No: Oriented to Person, Oriented to Place, Oriented to Time HEENT: Mouth Mucous membr. moist/[place]. No: Atraumatic, PERRLA Neck: Normal Range of Motion Lungs: Clear to auscultation, Normal air movement Cardiovascular: Regular rate Abdomen: Normal bowel sounds, Soft, No tenderness, Other (PEG tube site looks go od) Integumentary: Normal Extremities: No edema Neurological: Generalized Weakness Psych/Mental Status: No: Mental status NL, Mood NL, Appropriate Affect, Intact Judgment - Laboratory Results Laboratory Results: Laboratory Results 06/05/18 06/06/18 06/06/18 23:59 00:00 00:50 WBC RBC Hgb Hct MCV MCH MCHC RDW Plt Count Seg Neutrophils % Band Neutrophils % Lymphocytes % Monocytes % Eosinophils % Nucleated RBCs Reactive Lymphocytes Platelet Estimate Plt Morphology Comment Hypochromasia Macrocytosis RBC Morph Comment Sodium 130 L Potassium 4.4 Chloride 92 L Carbon Dioxide 30 BUN 15 Creatinine 0.71 Estimated Creat Clear 108 Est GFR ( Amer) > 60 Est GFR (Non-Af Amer) > 60 Glucose 100 Lactate 2.4 H Calcium 8.4 Total Bilirubin 0.2 AST 65 H ALT 29 Alkaline Phosphatase 105 Total Protein 7.1 Albumin 3.8 Urine Color TNP Urine Appearance TNP Urine pH 8.5 Ur Specific [place] 1.015 Urine Protein 1+ H Urine Ketones Negative Urine Occult Blood 3+ H Urine Nitrite Negative Urine Bilirubin Negative Urine Urobilinogen 0.2 Ur Leukocyte Esterase 3+ H Urine Glucose Negative 06/06/18 23:59 WBC 15.30 H RBC 4.14 Hgb 13.8 Hct 41.9 MCV 101.0 H MCH 33.5 MCHC 33.0 RDW 12.8 Plt Count 237 Seg Neutrophils % 38 L Band Neutrophils % 41 H Lymphocytes % 5 L Monocytes % 5 Eosinophils % 2 Nucleated RBCs 0 Reactive Lymphocytes 9 H Platelet Estimate Est. agrees w/plt ct Plt Morphology Comment Normal Hypochromasia 1+ H Macrocytosis 1+ H RBC Morph Comment Normal Sodium Potassium Chloride Carbon Dioxide BUN Creatinine Estimated Creat Clear Est GFR ( Amer) Est GFR (Non-Af Amer) Glucose Lactate Calcium Total Bilirubin AST ALT Alkaline Phosphatase Total Protein Albumin Urine Color Urine Appearance Urine pH Ur Specific [place] Urine Protein Urine Ketones Urine Occult Blood Urine Nitrite Urine Bilirubin Urine Urobilinogen Ur Leukocyte Esterase Urine Glucose Assessment/Plan - Assessment/Plan (1) Down's syndrome Status: Chronic Current Visit: No Plan: Sister Jose (DPOA) is present as well as primary care sales representative. (2) Hyponatremia Status: Acute Current Visit: Yes Plan: I don't have baseline on her but she was 124 when admitted in 2017 for same diagnosis. Will do gentle IV hydration. (3) Sepsis secondary to UTI Status: Acute Current Visit: Yes Plan: Blood and urine cultures done. Admit for IV rocephin. IVF for soft BP. Repeat labs. Watch closely. (4) Chronic pulmonary aspiration Status: Chronic Current Visit: No Qualifiers: Encounter type: subsequent encounter Qualified Code(s): T17.908D - Unspecified foreign body in respiratory tract, part unspecified causing other injury, subsequent encounter Plan: Continue Tube feeds and flushes as well as all meds by tube. VTE Assessment - RISK FACTOR SCORE VTE RISK FACTOR SCORES: AGE OVER 60 YEARS, ANTICIPATED BED CONFINEMENT OR IMMOBILIZATION > 24 HOURS - RISK VTE MODERATE RISK: SCORE OF 2 (RISK PROXIMAL DVT 2-4%) PROPHYAXIS NEEDED
[2018-06-06] MEDS ORDERED: ENOXAPARIN SODIUM 40 MG/0.4 ML DISP.SYRIN SQ ONE (09:00)
[2018-06-06] MEDS: 0.9 % SODIUM CHLORIDE 1,000 ML IV SCH ×2 (10:16→20:48)
[2018-06-06] MEDS: PATIENT OWN MED 1 EACH EACH PEG SCH ×2 (10:16→17:04)
[2018-06-06] MEDS: CEFTRIAXONE SODIUM IV SCH (10:17)
[2018-06-06] MEDS: UDCUP PEG SCH ×2 (10:17→17:18)
[2018-06-06] MEDS: DOCUSATE SODIUM 100 MG/10 ML S/F LIQUID PEG SCH (10:17)
[2018-06-06] MEDS: DEXTROMETHORPHAN HBR/QUINIDINE 1 EACH CAPSULE PEG SCH (10:17)
[2018-06-06] MEDS: BENZTROPINE MESYLATE 0.5 MG TAB PEG SCH ×2 (10:17→21:09)
[2018-06-06] MEDS: GUAIFENESIN 200 MG/10 ML PEG SCH ×2 (10:17→17:18)
[2018-06-06] MEDS: L. ACIDOPHILUS/LACTOBAC SPOR 1 EACH CAP PEG SCH (10:17)
[2018-06-06] MEDS: risperiDONE 0.5 MG TABLET PEG SCH (10:17)
[2018-06-06] MEDS: POLYETHYLENE GLYCOL 3350 17 GM POWD.PACK PEG SCH (10:18)
[2018-06-06] MEDS: CARBAMAZEPINE 200 MG TABLET PEG SCH ×3 (10:18→17:18)
[2018-06-06] MEDS: ALPRAZOLAM 0.5 MG TABLET PEG SCH ×4 (10:18→21:09)
[2018-06-06] MEDS ORDERED: AZITHROMYCIN 500 MG VIAL IV ONE (17:06)
[2018-06-06] MEDS ORDERED: 0.9 % SODIUM CHLORIDE 250 ML IV ONE (17:08)
[2018-06-06] MEDS: AZITHROMYCIN 500 MG in 0.9 % SODIUM CHLORIDE 250 ML IV SCH (17:17)
[2018-06-06] MEDS ORDERED: risperiDONE 0.5 MG TABLET PEG SCH (21:00)
[2018-06-07] MEDS: UDCUP PEG SCH ×3 (01:40→17:19)
[2018-06-07] MEDS: GUAIFENESIN 200 MG/10 ML PEG SCH ×3 (01:40→17:19)
[2018-06-07] MEDS: 0.9 % SODIUM CHLORIDE 1,000 ML IV SCH (05:31)
[2018-06-07] MEDS: LEVOTHYROXINE SODIUM 100 MCG TABLET PEG SCH (06:27)
[2018-06-07] MEDS: PATIENT OWN MED 1 EACH EACH PEG SCH ×5 (06:35→23:22)
[2018-06-07 08:00] LABS: BASOPHILS % 0.5 (0.0-1.5); MEAN CORPUSCULAR HEMOGLOBIN 33.7 pg (28.0-34.0); MONOCYTES % 7.7 % (0.0-11.0); NEUTROPHILS # 3.9 # k/uL (1.4-7.7)
[2018-06-07 09:44] LABS: eGFR (Non-African) > 60
--- NOTE | 2018-06-07 10:03 | Inpatient Progress Note ---
Subjective - Required Recertification Statement I anticipate X number of days because-include discharge plan: 1 - Review of Systems Subjective: Patient is doing better. Awake and looking around today. Objective - Exam Vitals and I&O: Vital Signs Temp 98 F 06/07/18 08:56 Pulse 74 06/07/18 08:56 Resp 20 06/07/18 08:56 BP 116/64 06/07/18 08:56 Pulse Ox 96 06/07/18 08:56 Intake & Output 06/06/18 06/06/18 06/07/18 11:59 23:59 11:59 Intake Total 1200 2760 600 Output Total 350 2550 700 Balance 850 210 -100 Weight 58.967 kg Intake: IV 1200 2400 600 Right Hand 1200 2400 600 Tube Feeding 360 Output: Urine 350 2550 700 Other: Voiding Method Indwelling Catheter Indwelling Catheter Indwelling Catheter # Bowel Movements 0 General: Alert Lungs: Clear to auscultation, Normal air movement, Speaks full Sentences Cardiovascular: Regular rate - Results Results: Laboratory Results WBC 5.30 K/ul (4.00-12.00) 06/07/18 07:00 RBC 3.49 M/ul (3.90-5.20) L 06/07/18 07:00 Hgb 11.8 g/dL (12.0-16.0) L 06/07/18 07:00 Hct 35.0 % (34.5-46.5) 06/07/18 07:00 MCV 100.0 fl (80.0-100.0) 06/07/18 07:00 MCH 33.7 pg (28.0-34.0) 06/07/18 07:00 MCHC 33.6 g/dL (30.0-36.0) 06/07/18 07:00 RDW 13.0 % (11.3-14.3) 06/07/18 07:00 Plt Count 225 K/mm3 (130-400) 06/07/18 07:00 Neut % (Auto) 73.4 % (39.0-79.0) 06/07/18 07:00 Lymph % (Auto) 15.4 % (16.0-50.0) L 06/07/18 07:00 Cotton % (Auto) 7.7 % (0.0-11.0) 06/07/18 07:00 Eos % (Auto) 3.0 % (0.0-6.8) 06/07/18 07:00 Baso % (Auto) 0.5 (0.0-1.5) 06/07/18 07:00 Neut # (Auto) 3.9 # k/uL (1.4-7.7) 06/07/18 07:00 Lymph # (Auto) 0.8 # k/uL (0.6-4.0) 06/07/18 07:00 Cotton # (Auto) 0.4 # k/uL (0.0-0.9) 06/07/18 07:00 Eos # (Auto) 0.2 # k/uL (0.0-0.6) 06/07/18 07:00 Baso # (Auto) 0.0 # k/uL (0.0-0.5) 06/07/18 07:00 Seg Neutrophils % 38 % (39-79) L 06/06/18 23:59 Band Neutrophils % 41 % (0-12) H 06/06/18 23:59 Lymphocytes % 5 % (16-50) L 06/06/18 23:59 Monocytes % 5 % (0-11) 06/06/18 23:59 Eosinophils % 2 % (0-7) 06/06/18 23:59 Nucleated RBCs 0 % (0-0) 06/06/18 23:59 Reactive Lymphocytes 9 % (0-5) H 06/06/18 23:59 Platelet Estimate Est. agrees w/plt ct 06/06/18 23:59 Plt Morphology Comment Normal (NORMAL) 06/06/18 23:59 Hypochromasia 1+ (NEGATIVE) H 06/06/18 23:59 Macrocytosis 1+ (NEGATIVE) H 06/06/18 23:59 RBC Morph Comment Normal (NORMAL) 06/06/18 23:59 Sodium 139 mmol/L (136-145) 06/07/18 07:45 Potassium 4.6 mmol/L (3.5-5.1) 06/07/18 07:45 Chloride 107 mmol/L (98-107) 06/07/18 07:45 Carbon Dioxide 26 mmol/L (22-30) 06/07/18 07:45 BUN 13 mg/dL (7-17) 06/07/18 07:45 Creatinine 0.77 mg/dL (0.52-1.04) 06/07/18 07:45 Estimated Creat Clear 99 06/07/18 07:45 Est GFR ( Amer) > 60 (60-) 06/07/18 07:45 Est GFR (Non-Af Amer) > 60 (60-) 06/07/18 07:45 Glucose 85 mg/dL (74-106) 06/07/18 07:45 Lactate 1.1 U/L (0.7-2.1) 06/06/18 12:05 Calcium 8.1 mg/dL (8.4-10.2) L 06/07/18 07:45 Total Bilirubin 0.2 mg/dL (0.2-1.3) 06/05/18 23:59 AST 65 U/L (15-46) H 06/05/18 23:59 ALT 29 U/L (13-69) 06/05/18 23:59 Alkaline Phosphatase 105 U/L (38-126) 06/05/18 23:59 Total Protein 7.1 g/dL (6.3-8.2) 06/05/18 23:59 Albumin 3.8 g/dL (3.5-5.0) 06/05/18 23:59 Urine Color TNP 06/06/18 00:50 Urine Appearance TNP 06/06/18 00:50 Urine pH 8.5 (5.0 - 8.0) 06/06/18 00:50 Ur Specific Boling 1.015 (1.010-1.030) 06/06/18 00:50 Urine Protein 1+ mg/dL (NEGATIVE) H 06/06/18 00:50 Urine Ketones Negative mg/dL (NEGATIVE) 06/06/18 00:50 Urine Occult Blood 3+ (NEGATIVE) H 06/06/18 00:50 Urine Nitrite Negative (NEGATIVE) 06/06/18 00:50 Urine Bilirubin Negative (NEGATIVE) 06/06/18 00:50 Urine Urobilinogen 0.2 Eu (0.2-1.0) 06/06/18 00:50 Ur Leukocyte Esterase 3+ (NEGATIVE) H 06/06/18 00:50 Urine Glucose Negative mg/dL (NEGATIVE) 06/06/18 00:50 Influenza A (Rapid) Negative (NEGATIVE) 06/06/18 00:50 Influenza B (Rapid) Negative (NEGATIVE) 06/06/18 00:50 Assessment/Plan - Assessment/Plan (1) Down's syndrome Status: Chronic Current Visit: No (2) Hyponatremia Status: Acute Current Visit: Yes Plan: Improved. Will SLIV to avoid fluid overload. (3) Sepsis secondary to UTI Status: Acute Current Visit: Yes Plan: Continue rocephin. Awaiting urine culture. BP and WBC improved. (4) Chronic pulmonary aspiration Status: Chronic Current Visit: No Qualifiers: Encounter type: subsequent encounter Qualified Code(s): T17.908D - Unspecified foreign body in respiratory tract, part unspecified causing other injury, subsequent encounter (5) Pneumonia Status: Acute Current Visit: Yes Qualifiers: Pneumonia type: due to unspecified organism Laterality: unspecified laterality Lung location: unspecified part of lung Qualified Code(s): J18.9 - Pneumonia, unspecified organism Plan: I added zithromax to regimen yesterday after reviewing CXR. She has been coughing lately.
[2018-06-07] MEDS: BENZTROPINE MESYLATE 0.5 MG TAB PEG SCH ×2 (10:08→23:18)
[2018-06-07] MEDS: DOCUSATE SODIUM 100 MG/10 ML S/F LIQUID PEG SCH (10:11)
[2018-06-07] MEDS: L. ACIDOPHILUS/LACTOBAC SPOR 1 EACH CAP PEG SCH (10:12)
[2018-06-07] MEDS: CEFTRIAXONE SODIUM IV SCH (10:19)
[2018-06-07] MEDS: DEXTROMETHORPHAN HBR/QUINIDINE 1 EACH CAPSULE PEG SCH (10:20)
[2018-06-07] MEDS: risperiDONE 0.5 MG TABLET PEG SCH (10:22)
[2018-06-07] MEDS: CARBAMAZEPINE 200 MG TABLET PEG SCH (10:23)
[2018-06-07] MEDS: ALPRAZOLAM 0.5 MG TABLET PEG SCH ×4 (10:27→23:18)
[2018-06-07] MEDS: POLYETHYLENE GLYCOL 3350 17 GM POWD.PACK PEG SCH (11:22)
[2018-06-07] MEDS ORDERED: PATIENT OWN MED 1 EACH EACH PEG SCH (13:00)
[2018-06-07] MEDS: AZITHROMYCIN 500 MG in 0.9 % SODIUM CHLORIDE 250 ML IV SCH (17:31)
[2018-06-08] MEDS: GUAIFENESIN 200 MG/10 ML PEG SCH ×2 (02:57→08:15)
[2018-06-08] MEDS: UDCUP PEG SCH ×2 (02:57→08:15)
[2018-06-08] MEDS: LEVOTHYROXINE SODIUM 100 MCG TABLET PEG SCH (06:07)
[2018-06-08 07:53] VITALS: BP 119/69
[2018-06-08] MEDS: DEXTROMETHORPHAN HBR/QUINIDINE 1 EACH CAPSULE PEG SCH (08:14)
[2018-06-08] MEDS: ALPRAZOLAM 0.5 MG TABLET PEG SCH (08:14)
[2018-06-08] MEDS: BENZTROPINE MESYLATE 0.5 MG TAB PEG SCH (08:14)
[2018-06-08] MEDS: PATIENT OWN MED 1 EACH EACH PEG SCH ×3 (08:15)
[2018-06-08] MEDS: CEFTRIAXONE SODIUM IV SCH (08:15)
[2018-06-08] MEDS: DOCUSATE SODIUM 100 MG/10 ML S/F LIQUID PEG SCH (08:15)
[2018-06-08] MEDS ORDERED: PATIENT OWN MED 1 EACH EACH PEG SCH (09:00)
--- NOTE | 2018-06-08 09:27 | Discharge Summary ---
Discharge Summary - Discharge Sumary History of Present Illness: Patient lives in a Assisted ([facility] in [place]. She has a permanent suprapubic catheter for retention and has chronic UTI's. She takes bactrim bid every day. On day of transfer, staff noted she wasn't acting like herself. She has had urosepsis in the past so staff has pretty stringent criteria to watch her for recurrence. They tell me she "spiked a fever" of 99. Then they noted her BP drop over 30 min until it was in the 80's. Ambulance transfer to [facility]. She was found to have an elevated WBC and large bandemia. Blood and urine cultures sent. She responded well to IV bolus. She has Down's Syndrome. She has a PEG tube due to aspiration. Has been tolerating tube feeds without incident. Condition at Discharge: Stable Home Medications: Ambulatory Orders Medication Instructions Recorded Cholecalciferol [Vitamin D-3] 5,000 unit PO DAILY 03/19/13 Docusate Sodium [Colace] 25 ml PO BID 03/19/13 Fluticasone Propionate [Flonase] 2 sprays SAM DAILY 03/19/13 Ipratropium/Albuterol Sulfate 3 ml INH Q4 PRN 03/19/13 [Duoneb 0.5 mg-3 mg/3 ml Soln] Cetirizine HCl [Zyrtec] 10 mg PO D 02/15/14 Alprazolam [Xanax] 0.5 mg PO QID 06/06/18 Benztropine Mesylate 0.5 mg JT BID 06/06/18 Carbamazepine [Tegretol] 100 mg JT TID 06/06/18 Dextromethorphan HBr/Quinidine 1 cap JT DAILY 06/06/18 [Nuedexta] Docusate Sodium [Colace] 06/06/18 Docusate Sodium [Colace] 10 ml JT DAILY 06/06/18 L.acidoph,Paracasei, B.lactis 1 cap JT DAILY 06/06/18 [Probiotic] Levothyroxine Sodium 88 mcg JT DAILY 06/06/18 Levothyroxine Sodium 88 mcg PO DAILY 06/06/18 Omeprazole Magnesium [Prilosec] 20 pkt JT BID 02/21/19 Polyethylene Glycol 3350 [Miralax] 17 gm JT DAILY 06/06/18 Risperidone 0.5 mg JT Q12 06/06/18 guaiFENesin DM [Robitussin Dm] 10 ml JT TID 06/06/18 Levofloxacin [Levaquin] 500 mg PEG DAILY #7 tablet 06/08/18 Consultations this Visit: None Procedures this Visit: None Allergies/Adverse Reactions: Allergies Allergy/AdvReac Type Severity Reaction Status Date / Time ampicillin trihydrate Allergy Unknown Verified 06/05/18 23:53 [From Principen] tetrahydrozoline HCl Allergy Unknown Verified 06/05/18 23:53 [From Visine] Penicillins AdvReac Rash Verified 06/05/18 23:53 Patient Problems: Current Active Problems Problem Status Onset Hyponatremia Acute Pneumonia Acute Sepsis secondary to UTI Acute Discharge Summary: Patient admitted with pneumonia and suspected urosepsis. She responded well to IVF - hypotension resolved. She was started on levaquin and zithromax. WBC returned to normal. Mentation much improved. Urine culture did not show in fection. Instructed staff on deep breathing on discharge. She was discharged home in good condition on regular home meds. Hospital Course: Discharge Dx: Pneumonia. Hypotensive. Down's Syndrome. Disposition - [facility].
[2018-06-08] MEDS: POLYETHYLENE GLYCOL 3350 17 GM POWD.PACK PEG SCH (12:08)
== END 2018-06-08 11:40 | disposition home or self-care (01) | DRG 872 ==
LOC: ED 23:23 → SOUTH 06-06 01:28
PROVIDERS: ADMIT Family Medicine; ATTEND Family Medicine
DX: A41.9 Sepsis, unspecified organism (principal); N39.0 Urinary tract infection, site not specified; E87.1 Hypo-osmolality and hyponatremia; E86.0 Dehydration; I95.9 Hypotension, unspecified; R50.9 Fever, unspecified; Q90.9 Down syndrome, unspecified; Z93.1 Gastrostomy status
CPT/HCPCS: 36415; 51702; 71045; 80048; 80053; 81002; 83605; 84439; 84443; 85025; 85027; 87040; 87086; 87400; 96365; 99232; 99238; 99284; 99285; J0456; J0696; J1650; J2405; J7050; J7060; A9270-GY; J7030; S1016

== ENCOUNTER 2018-09-16 23:00 | Emergency (ER) | payer MEDICARE, OTHER ==
[2018-09-16] MEDS ORDERED: levoFLOXacin 500 MG TABLET ONE (23:32)
[2018-09-16] MEDS ORDERED: levoFLOXacin 250 MG TABLET PO ONE (23:32)
[2018-10-06 09:36] LABS: APPEARANCE,URINE CLEAR (CLEAR); COLOR,URINE YELLOW (YELLOW); OCCULT BLOOD,URINE 1+ (NEGATIVE); PH URINE 7.5 (5.0 - 8.0)
[2018-10-06 09:37] LABS: UROBILINOGEN URINE 0.2 Eu (0.2-1.0)
[2018-10-06 10:10] LABS: BASOPHILS % 0.8 % (0.0-1.5); NEUTROPHILS # 15.7 # k/uL (1.4-7.7); eGFR (Non-African) > 60
--- NOTE | 2018-11-08 10:32 | Diagnostic Imaging Report ---
[facility]U [facility] ED [facility] [address] Counts Include [facility] [address], [place]. [address] Report Submission Date: Sep 17, 2018 12:35:22 AM CDT Patient Study Name: MANJULA DE LOS SANTOS Date: Sep 17, 2018 12:13:52 AM CDT Modality Type: DX Gender: F Description: CHEST 1VIEW : 72 Institution: [facility] Physician: BLU PENA ED Portable chest Clinical history: Cough. Findings: Examination of the chest in single portable AP view demonstrates articular changes consistent with pulmonary congestion or atypical infiltrate. Cardiac silhouette is prominent. Bony thorax is intact. Impression: 1. Atypical infiltrate or pulmonary vascular congestion. 2. Left ventricular prominence. Electronically signed on Sep 17, 2018 12:35:22 AM CDT by: Anton MERCADO
== END 2018-09-17 00:44 ==
LOC: ED 23:00
DX: N39.0 Urinary tract infection, site not specified (principal); Z93.1 Gastrostomy status
CPT/HCPCS: 36415; 71045; 80053; 81002; 85025; 87086; 99283; S1016

== ENCOUNTER 2018-09-27 18:20 | Outpatient (CLI) | payer MEDICARE, OTHER ==
[2018-10-09 14:30] LABS: APPEARANCE,URINE CLOUDY (CLEAR); COLOR,URINE YELLOW (YELLOW); OCCULT BLOOD,URINE NEGATIVE (NEGATIVE); UROBILINOGEN URINE 0.2 Eu (0.2-1.0)
== END 2018-09-27 18:25 | disposition home or self-care (01) ==
LOC: LAB 18:20
PROVIDERS: ATTEND Family Medicine
DX: Z13.89 Encounter for screening for other disorder (principal); Z87.440 Personal history of urinary (tract) infections
CPT/HCPCS: 81002; 87086

== ENCOUNTER 2019-04-11 14:10 | Emergency (ER) | payer MEDICARE, OTHER ==
--- NOTE | 2019-04-11 14:49 | ED Physician Documentation ---
Upper Respiratory Symptoms - HISTORIAN Historian: patient - HPI Stated Complaint: cough, fever Chief Complaint: Cough/ Upper Respiratory Additional Information: Patient presented to ED with cough and fever since 04/09/19. Patient was started on Azithromycin s/p 2 doses. Onset: days ago (2) Duration: intermittent episodes Context: denies: recent foreign travel Severity: moderate Associated Symptoms: fever, productive cough - ROS CONST/EYES: weakness CVS/RESP: denies: chest pain, shortness of breath LYMPH: denies: rash GI/: denies: abdominal pain, vomiting, nausea NEURO/PSYCH: denies: fainting MS/SKIN: denies: muscle aches - PAST HX Lung Disease: other (Aspiration pneumonia, downs syndrome, suprapubic catheter, feeding tube) PE Risk Factors: none Surgeries/Procedures: none Allergies/Adverse Reactions: Allergies Allergy/AdvReac Type Severity Reaction Status Date / Time ampicillin trihydrate Allergy Unknown Verified 04/11/19 14:48 [From Principen] tetrahydrozoline HCl Allergy Unknown Verified 04/11/19 14:48 [From Visine] Penicillins AdvReac Rash Verified 04/11/19 14:48 Home Medications: Ambulatory Orders Medication Instructions Recorded Cholecalciferol [Vitamin D-3] 5,000 unit PO DAILY 03/19/13 Docusate Sodium [Colace] 25 ml PO BID 03/19/13 Fluticasone Propionate [Flonase] 2 sprays SAM DAILY 03/19/13 Ipratropium/Albuterol Sulfate 3 ml INH Q4 PRN 03/19/13 [Duoneb 0.5 mg-3 mg/3 ml Soln] Cetirizine HCl [Zyrtec] 10 mg PO D 02/15/14 ALPRAZolam [Xanax] 0.5 mg PO QID 06/06/18 Benztropine Mesylate 0.5 mg JT BID 06/06/18 Carbamazepine [Tegretol] 100 mg JT TID 06/06/18 Dextromethorphan HBr/Quinidine 1 cap JT DAILY 06/06/18 [Nuedexta] Docusate Sodium [Colace] 06/06/18 Docusate Sodium [Colace] 10 ml JT DAILY 06/06/18 L.acidoph,Paracasei, B.lactis 1 cap JT DAILY 06/06/18 [Probiotic] Levothyroxine Sodium 88 mcg JT DAILY 06/06/18 Levothyroxine Sodium 88 mcg PO DAILY 06/06/18 Omeprazole Magnesium [Prilosec] 20 pkt JT BID 06/06/18 Polyethylene Glycol 3350 [Miralax] 17 gm JT DAILY 06/06/18 Risperidone 0.5 mg JT Q12 06/06/18 guaiFENesin DM [Robitussin Dm] 10 ml JT TID 06/06/18 LevoFLOXacin [Levaquin] 500 mg PEG DAILY #7 tablet 06/08/18 Clindamycin HCl 600 mg PO Q8 10 Days #60 capsule 04/11/19 - SOCIAL HX Smoking History: non-smoker Alcohol Use: none Drug Use: none - FAMILY HX Family History: none - VITAL SIGNS Vital Signs: Vital Signs Temp Pulse Resp BP Pulse Ox 98.2 F 83 20 135/76 99 04/11/19 14:14 04/11/19 14:14 04/11/19 14:14 04/11/19 14:14 04/11/19 14:14 - REVIEWED ASSESSMENTS Nursing Assessment Reviewed: Yes Vitals Reviewed: Yes ED Results Lab/Radiology - Lab Results Lab Results: Lab Results 04/11/19 04/11/19 14:40 14:40 WBC 4.80 K/ul K/ul (4.00-12.00) RBC 3.59 M/ul L M/ul (3.90-5.20) Hgb 11.9 g/dL g/dL (11.5-16.0) Hct 34.4 % L % (34.5-46.5) MCV 96.0 fl fl (80.0-100.0) MCH 33.1 pg pg (28.0-34.0) MCHC 34.5 g/dL g/dL (30.0-36.0) RDW 11.6 % % (11.3-14.3) Plt Count 157 K/mm3 K/mm3 (130-400) Neut % (Auto) 74.5 % % (39.0-79.0) Lymph % (Auto) 8.3 % L % (16.0-50.0) Faulk % (Auto) 15.5 % H % (0.0-11.0) Eos % (Auto) 1.0 % % (0.0-6.8) Baso % (Auto) 0.7 % % (0.0-1.5) Neut # (Auto) 3.6 # k/uL # k/uL (1.4-7.7) Lymph # (Auto) 0.4 # k/uL L # k/uL (0.6-4.0) Faulk # (Auto) 0.7 # k/uL # k/uL (0.0-0.9) Eos # (Auto) 0.1 # k/uL # k/uL (0.0-0.6) Baso # (Auto) 0.0 # k/uL # k/uL (0.0-0.5) Sodium 131 mmol/L L mmol/L (137-145) Potassium 4.4 mmol/L mmol/L (3.5-5.1) Chloride 90 mmol/L L mmol/L (98-107) Carbon Dioxide 32 mmol/L H mmol/L (22-30) Anion Gap 13.4 BUN 21 mg/dL H mg/dL (7-17) Creatinine 0.98 mg/dL mg/dL (0.52-1.04) Est GFR ( Amer) > 60 (60 - ) Est GFR (Non-Af Amer) > 60 (60 - ) Glucose 59 mg/dL L mg/dL (74-106) Calcium 8.1 mg/dL L mg/dL (8.4-10.2) Total Bilirubin 0.2 mg/dL mg/dL (0.2-1.3) AST 61 U/L H U/L (15-46) ALT 24 U/L U/L (4-35) Alkaline Phosphatase 108 U/L U/L (38-126) Total Protein 7.3 g/dL g/dL (6.3-8.2) Albumin 3.8 g/dL g/dL (3.5-5.0) - Radiology Radiology Impressions: Report Submission Date: Apr 11, 2019 3:16:04 PM CREDIT OPERATIONS PROCESSOR Patient Study Name: MANJULA DE LOS SANTOS Date: Apr 11, 2019 2:43:03 PM CREDIT OPERATIONS PROCESSOR Modality Type: DX Gender: F Description: CHEST 2VIEW : 72 Institution: [facility] Physician: BACILIO ALFRED Exam: Chest two views. History: Fever and cough. The examination is compared to study dated September 17, 2018. Perihilar infiltrates are noted. Cardiac silhouette is enlarged with atherosclerotic plaques seen in the aorta. Degenerative changes in the thoracic spine are noted. Impression: Perihilar infiltrates. Cardiomegaly. Electronically signed on Apr 11, 2019 3:16:04 PM CREDIT OPERATIONS PROCESSOR by: Castro Ramos - Orders Orders: ED Orders Category Date Time Status CHEST 2VIEW [RAD] Stat Exams 04/11/19 Completed BLOOD CULTURE Stat Lab 04/11/19 16:10 Received CBC/PLATELET/DIFF Routine Lab 04/11/19 14:40 Completed CMP Routine Lab 04/11/19 14:40 Completed INFLUENZA A&B Stat Lab 04/11/19 Uncollected UA W/MICRO IF INDICATED Routine Lab 04/11/19 14:38 Ordered Ipratropium/Albuterol Sulfate [Duoneb] Med 04/11/19 15:27 Discontinued 3 ml NEB NOW ONE cefTRIAXone SODIUM [Rocephin] 1 gm Med 04/11/19 15:27 Discontinued 0.9 % Sodium Chloride [Normal Saline] 50 ml IV NOW Upper Respiratory Symptoms - EXAM General Appearance: no acute distress, alert EENT: PERRL Respiratory: no resp. distress, other (course breath sounds bilaterally) Abdomen: non-tender, nml bowel sounds, no distention, other (Feeding tube LUQ, suprapubic catheter) CVS: reg rate & rhythm, heart sounds normal Skin: color nml, no rash Extremities: non-tender, no edema Neuro/Psych: neuro intact, mood/affect nml Discharge Clincal Impression: Bilateral pneumonia Qualifiers: Pneumonia type: due to other aerobic Gram-negative bacteria Lung location: unspecified part of lung Qualified Code(s): J15.6 - Pneumonia due to other Gram- negative bacteria Prescriptions: Clindamycin HCl 600 mg PO Q8 10 Days #60 capsule Referrals: Esther Child MD [Primary Care Provider] - 2 Days Additional Instructions: 1. Stop Azithromycin. Begin Clindamycin on 04/12/19 2. Continue breathing treatments 3. Tylenol as needed for fever 4. Follow up with PCP within 4 days 5. Return to ER for new or worsening symptoms Condition: Stable Disposition: 01 HOME, SELF-CARE Decision to Admit: NO Date of Decison to Admit: 04/11/19 Decision Time: 16:19
[2019-04-11 15:00] LABS: BASOPHILS % 0.7 % (0.0-1.5); NEUTROPHILS # 3.6 # k/uL (1.4-7.7)
[2019-04-11 15:01] LABS: eGFR (Non-African) > 60
--- NOTE | 2019-04-11 15:20 | Diagnostic Imaging Report ---
PATIENT MR#: [id number] PATIENT PATIENT NAME: MANJULA DE LOS SANTOS DATE OF : 1970 REFERRING PHYSICIAN: Erika Mcnair EXAM DATE: 04/11/2019 ACCESSION NUMBER: [id number] EXAM DESCRIPTION: CHEST 2VIEW Exam: Chest two views. History: Fever and cough. The examination is compared to study dated September 17, 2018. Perihilar infiltrates are noted. Cardiac silhouette is enlarged with atherosclerotic plaques seen in the aorta. Degenerative changes in the thoracic spine are noted. Impression: Perihilar infiltrates. Cardiomegaly. Read by: Dr. Castro Lopez Transcribed by: Transcribed Date: Electronically signed by: Dr. Castro Lopez Date signed: 04/11/2019 3:20:18 PM
[2019-04-11] MEDS ORDERED: IPRATROPIUM/ALBUTEROL SULFATE 3 ML AMPUL.NEB NEB ONE (15:27)
[2019-04-11] MEDS ORDERED: cefTRIAXone SODIUM 1 GM in 0.9 % SODIUM CHLORIDE 50 ML IV ONE (15:27)
[2019-04-11 16:43] VITALS: BP 114/70
[2019-04-12 06:59] LABS: APPEARANCE,URINE CLOUDY (CLEAR); COLOR,URINE AMBER (YELLOW)
[2019-04-12 07:00] LABS: OCCULT BLOOD,URINE 3+ (NEGATIVE); PH URINE 6.5 (5.0 - 8.0); UROBILINOGEN URINE 0.2 Eu (0.2-1.0)
== END 2019-04-11 16:35 | disposition home or self-care (01) ==
LOC: ED 14:10
DX: J15.6 Pneumonia due to other Gram-negative bacteria (principal)
CPT/HCPCS: 80053; 81002; 85025; 87040; 87086; 94640; 96374; 99284; J0696; S1016